=== PATIENT | male | born 1990 | race Caucasian/White ===

== ENCOUNTER 2016-10-30 20:12 | Emergency (ER) | payer MEDICAID | END 2016-10-30 21:00 | disposition left against medical advice (07) | LOC: ER 20:12 | DX: Z53.21 Procedure and treatment not carried out due to patient leaving prior to being seen by health care provider (principal) ==

== ENCOUNTER 2016-11-08 21:30 | Emergency (ER) | payer MEDICAID ==
[2016-11-08 21:34] VITALS: BP 151/92
--- NOTE | 2016-11-08 22:40 | ER Document Report ---
HPI - HPI Patient complains to provider of: hand pain Onset: This afternoon Onset/Duration: Sudden Quality of pain: Achy Severity: Moderate Pain Level: 3 Context: Patient presents to emergency department with complaints of right hand pain after he punched a pole. Associated Symptoms: None Exacerbated by: Denies Relieved by: Denies Similar symptoms previously: Yes Recently seen / treated by doctor: No - DERM Skin Color: Normal Past Medical History - General Information source: Patient - Social History Smoking Status: Current Every Day Smoker Cigarette use (# per day): Yes Chew tobacco use (# tins/day): No Frequency of alcohol use: None Drug Abuse: None Family History: None Patient has suicidal ideation: No Patient has homicidal ideation: No Renal/ Medical History: Denies: Hx Peritoneal Dialysis Psychiatric Medical History: Reports: Hx Depression, Hx Schizoaffective Disorder Surgical Hx: Negative - Immunizations Hx Diphtheria, Pertussis, Tetanus Vaccination: Yes Vertical Provider Document - CONSTITUTIONAL Agree With Documented VS: Yes Exam Limitations: No Limitations General Appearance: WD/WN, No Apparent Distress - INFECTION CONTROL TRAVEL OUTSIDE OF THE [place]S. IN LAST 30 DAYS: No - HEENT HEENT: Atraumatic - NECK Neck: Supple - RESPIRATORY Respiratory: No Respiratory Distress O2 Sat by Pulse Oximetry: 97 - MUSCULOSKELETAL/EXTREMETIES Musculoskeletal/Extremeties: MAEW, FROM, Tender - Right dorsal hand tender to palpation erythema noted no obvious deformity good cap refill - NEURO Level of Consciousness: Awake, Alert, Appropriate Motor/Sensory: No Motor Deficit - DERM Integumentary: Warm, Dry Adult Front & Back Diagram: 1 - c/o pain Course - Vital Signs Vital signs: Temp Pulse Resp BP Pulse Ox 98.0 F 110 H 151/92 H 97 11/08/16 21:33 11/08/16 21:33 11/08/16 21:33 11/08/16 21:33 Discharge - Discharge Clinical Impression: Right hand pain, elevated blood pressure Condition: Stable Disposition: HOME, SELF-CARE Instructions: Use of Kdwd-Wek-Buincif Ibuprofen ([facility]), Ice & Elevation ([facility]) Additional Instructions: *You have been evaluated for right hand pain *Take ibuprofen as indicated for pain *Rest/Ice/Elevate the hand *Follow up with orthopedics in one week for recheck-call for an appointment *Return to ED for worsening condition, changes, needs Forms: Elevated Blood Pressure
== END 2016-11-08 22:52 | disposition home or self-care (01) ==
LOC: ER 21:30
DX: M79.641 Pain in right hand (principal); L53.9 Erythematous condition, unspecified; W22.8XXA Striking against or struck by other objects, initial encounter; F17.210 Nicotine dependence, cigarettes, uncomplicated; I10 Essential (primary) hypertension
CPT/HCPCS: 99283

== ENCOUNTER 2016-12-26 10:50 | Observation (INO) | payer MEDICAID ==
--- NOTE | 2016-12-26 11:22 | ER Document Report ---
ED Medical Screen (RME) - General Stated Complaint: WEAKNESS Notes: pt states he woke up this morning with generalized weakness. Has vomited 1. No diarrhea. States he felt weak and fell hitting left side of face on the floor. Patient denies recent illness, mother states he felt hot this morning and gave him Tylenol and Motrin. I have greeted and performed a rapid initial assessment of this patient. A comprehensive ED assessment and evaluation of the patient, analysis of test results and completion of the medical decision making process will be conducted by additional ED providers. TRAVEL OUTSIDE OF THE U.S. IN LAST 30 DAYS: No - Related Data Allergies/Adverse Reactions: No Known Allergies Allergy (Verified 12/26/16 11:20) Past Medical History Renal/ Medical History: Denies: Hx Peritoneal Dialysis Psychiatric Medical History: Reports: Hx Depression, Hx Schizoaffective Disorder - Immunizations Hx Diphtheria, Pertussis, Tetanus Vaccination: Yes Physical Exam - Vital signs Vitals: Temp Pulse Resp BP Pulse Ox 97.7 F 101 H 18 156/92 H 97 12/26/16 10:54 12/26/16 10:54 12/26/16 10:54 12/26/16 10:54 12/26/16 10:54 - General General appearance: Anxious In distress: Mild Notes: Bruising noted to left lateral orbit. Course - Vital Signs Vital signs: Temp Pulse Resp BP Pulse Ox 97.7 F 101 H 18 156/92 H 97 12/26/16 10:54 12/26/16 10:54 12/26/16 10:54 12/26/16 10:54 12/26/16 10:54
[2016-12-26 11:48] LABS: ABSOLUTE EOSINOPHILS # (AUTO) 0.1 10^3/uL (0.0-0.6); ABSOLUTE LYMPHOCYTES (AUTO) 1.5 10^3/uL (0.5-4.7); ABSOLUTE MONOCYTES (AUTO) 1.2 10^3/uL (0.1-1.4); ABSOLUTE NEUT (AUTO) 7.6 10^3/uL (1.7-8.2); BASOPHILS % (AUTO) 0.4 % (0-2); EOSINOPHILS % (AUTO) 0.8 % (0-6); HEMATOCRIT 40.3 % (37.9-51.0); HGB HCT DIFFERENCE 1.7; LYMPHOCYTES % (AUTO) 14.8 % (13-45); MEAN CORPUSCULAR HEMOGLOBIN 31.9 pg (27.0-33.4); MEAN CORPUSCULAR HGB CONC 34.7 g/dL (32.0-36.0); MEAN CORPUSCULAR VOLUME 92 fl (80-97); MONOCYTES % (AUTO) 11.1 % (3-13); RED BLOOD COUNT 4.38 10^6/uL (4.35-5.55); RED CELL DISTRIBUTION WIDTH 13.4 % (11.5-14.0); SEGMENTED NEUTROPHILS % (AUTO) 72.9 % (42-78); WHITE BLOOD COUNT 10.4 10^3/uL (4.0-10.5)
[2016-12-26 12:33] LABS: ALANINE AMINOTRANSFERASE 58 U/L (21-72); ALBUMIN 4.4 g/dL (3.5-5.0); ALKALINE PHOSPHATASE 115 U/L (38-126); ANION GAP 14 (5-19); ASPARTATE AMINO TRANSFERASE 60 U/L (17-59); BILIRUBIN,TOTAL 0.3 mg/dL (0.2-1.3); BLOOD UREA NITROGEN 6 mg/dL (7-20); CALCIUM 9.8 mg/dL (8.4-10.2); CARBON DIOXIDE 18 mmol/L (22-30); CHLORIDE 108 mmol/L (98-107); GLUCOSE 219 mg/dL (75-110); SODIUM 139.9 mmol/L (137-145); TOTAL PROTEIN 7.2 g/dL (6.3-8.2)
[2016-12-26 12:38] LABS: POTASSIUM 1.9 mmol/L (3.6-5.0)
--- NOTE | 2016-12-26 12:44 | ER Document Report ---
ED General - General Chief Complaint: Weakness Stated Complaint: WEAKNESS Mode of Arrival: Ambulatory Information source: Patient Notes: 26-year-old male presents with complaints of muscle weakness difficulty ambulating and standing over the past day. Patient notes he has been having diarrhea for 6 months straight. Denies any fevers or chills has vomited one time TRAVEL OUTSIDE OF THE [place] IN LAST 30 DAYS: No - HPI Onset: Other Onset/Duration: Persistent Quality of pain: Achy Severity: Moderate Pain Level: 1 Associated symptoms: Body/muscle aches, Weakness Exacerbated by: Walking Relieved by: Denies Similar symptoms previously: No Recently seen / treated by doctor: No - Related Data Allergies/Adverse Reactions: No Known Allergies Allergy (Verified 12/26/16 11:20) Past Medical History - Social History Smoking Status: Current Every Day Smoker Cigarette use (# per day): Yes Chew tobacco use (# tins/day): No Smoking Education Provided: No Frequency of alcohol use: None Drug Abuse: None Family History: None Patient has suicidal ideation: No Patient has homicidal ideation: No Renal/ Medical History: Denies: Hx Peritoneal Dialysis Psychiatric Medical History: Reports: Hx Depression, Hx Schizoaffective Disorder - Immunizations Hx Diphtheria, Pertussis, Tetanus Vaccination: Yes Review of Systems - Review of Systems Notes: REVIEW OF SYSTEMS: CONSTITUTIONAL : Denies fever, chills, or sweats. Denies recent illness. EENT: Denies eye, ear, throat, or mouth pain or symptoms. Denies nasal or sinus congestion or discharge. Denies throat, tongue, or mouth swelling or difficulty swallowing. CARDIOVASCULAR: Denies chest pain. Denies palpitations or racing or irregular heart beat. Denies ankle edema. RESPIRATORY: Denies cough, cold, or chest congestion. Denies shortness of breath, difficulty breathing, or wheezing. GASTROINTESTINAL: Admits to diarrhea GENITOURINARY: Denies difficulty urinating, painful urination, burning, frequency, blood in urine, or discharge. MUSCULOSKELETAL: Admits to muscle weakness SKIN: Denies rash, lesions or sores. HEMATOLOGIC : Denies easy bruising or bleeding. LYMPHATIC: Denies swollen, enlarged glands. NEUROLOGICAL: Denies confusion or altered mental status. Denies passing out or loss of consciousness. Denies dizziness or lightheadedness. Denies headache. Denies weakness or paralysis or loss of use of either side. Denies problems with gait or speech. Denies sensory loss, numbness, or tingling. Denies seizures. PSYCHIATRIC: Denies anxiety or stress. Denies depression, suicidal ideation, or homicidal ideation. ALL OTHER SYSTEMS REVIEWED AND NEGATIVE. Dictation was performed using [employer] voice recognition software PHYSICAL EXAMINATION: GENERAL: Well-appearing, well-nourished and in no acute distress. HEAD: Atraumatic, normocephalic. EYES: Pupils equal round and reactive to light, extraocular movements intact, sclera anicteric, conjunctiva are normal. ENT: Nares patent, oropharynx clear without exudates. Moist mucous membranes. NECK: Normal range of motion, supple without lymphadenopathy LUNGS: Breath sounds clear to auscultation bilaterally and equal. No wheezes rales or rhonchi. HEART: Regular rate and rhythm without murmurs ABDOMEN: Soft, nontender, nondistended abdomen. No guarding, no rebound. No masses appreciated. Musculoskeletal: Normal range of motion, no pitting or edema. No cyanosis. NEUROLOGICAL: Cranial nerves grossly intact. Normal speech, normal gait. Normal sensory, motor exams PSYCH: Normal mood, normal affect. SKIN: Warm, Dry, normal turgor, no rashes or lesions noted. Physical Exam - Vital signs Vitals: Temp Pulse Resp BP Pulse Ox 97.7 F 101 H 18 156/92 H 97 12/26/16 10:54 12/26/16 10:54 12/26/16 10:54 12/26/16 10:54 12/26/16 10:54 Course - Re-evaluation Re-evalutation: 12/26/16 12:43 Patient's initial potassium is noted to be 1.9 this would be consistent with the patient's presentation and complaints. A repeat has been ordered 12/26/16 13:12 pt repeat noted ot be 2.3 , will treat immediately and admit ot the hospitals[facility] service - Vital Signs Vital signs: Temp Pulse Resp BP Pulse Ox 97.7 F 101 H 18 156/92 H 97 12/26/16 10:54 12/26/16 10:54 12/26/16 10:54 12/26/16 10:54 12/26/16 10:54 - Laboratory Result Diagrams: 12/26/16 11:25 12/26/16 12:40 Laboratory results interpreted by me: 12/26/16 12/26/16 11:25 12:40 Potassium 1.9 L* 2.3 L* Chloride 108 H 113 H Carbon Dioxide 18 L 19 L BUN 6 L 6 L Glucose 219 H 111 H Calcium 10.3 H AST 60 H Critical Care Note - Critical Care Note Total time excluding time spent on procedures (mins): 40 Comments: 40 minutes of critical care time spent in direct contact evaluating and reevaluating the patient, treating symptoms, reviewing labs and studies and speaking with family and consultants excluding any procedures Discharge - Discharge Clinical Impression: severe hypokalemia, Generalized muscle ache, Weakness, Chronic diarrhea Condition: Fair Disposition: ADMITTED OBSERVATION Admitting Provider: Hospitalist Unit Admitted: Medical Floor
[2016-12-26 13:06] LABS: ALANINE AMINOTRANSFERASE 60 U/L (21-72); ALBUMIN 4.6 g/dL (3.5-5.0); ALKALINE PHOSPHATASE 109 U/L (38-126); ANION GAP 13 (5-19); ASPARTATE AMINO TRANSFERASE 55 U/L (17-59); BILIRUBIN,TOTAL 0.4 mg/dL (0.2-1.3); BLOOD UREA NITROGEN 6 mg/dL (7-20); CALCIUM 10.3 mg/dL (8.4-10.2); CARBON DIOXIDE 19 mmol/L (22-30); CHLORIDE 113 mmol/L (98-107); CREATINE KINASE 164 U/L (55-170); GLUCOSE 111 mg/dL (75-110); MAGNESIUM 1.8 mg/dL (1.6-2.3); SODIUM 144.7 mmol/L (137-145); TOTAL PROTEIN 7.5 g/dL (6.3-8.2)
[2016-12-26 13:10] LABS: POTASSIUM 2.3 mmol/L (3.6-5.0)
[2016-12-26] MEDS ORDERED: POTASSIUM CHLORIDE 10 MEQ TABLET.SA PO ONE ×2 (13:11→20:00)
[2016-12-26] MEDS: POTASSI CL 20 MEQ/50 ML RIDER 50 ML IV SCH ×4 (14:04→22:58)
[2016-12-26 14:16] LABS: APPEARANCE,URINE CLEAR; BILIRUBIN,URINE NEGATIVE (NEGATIVE); GLUCOSE, URINE NEGATIVE (NEGATIVE); KETONES,URINE NEGATIVE (NEGATIVE); LEUKOCYTE ESTERASE,URINE NEGATIVE (NEGATIVE); NITRITE,URINE NEGATIVE (NEGATIVE); PROTEIN,URINE NEGATIVE (NEGATIVE); URINE SPECIFIC GRAVITY 1.002; UROBILINOGEN,URINE NEGATIVE mg/dL (<2.0)
--- NOTE | 2016-12-26 15:08 | PDOC H&P ---
History of Present Illness Admission Date/PCP: 12/26/16 14:11 Patient complains of: Generalized muscle weakness History of Present Illness: OVIDOI NOBLES is a 26 year old male male who presents to the emergency room this morning complaining of difficulty ambulating, falling after eating out of bed and generalized muscle weakness over the last 24 hours. He claims he 's had diarrhea for the last 6 months straight. He denies any recent antibiotic use. He states he was nauseated this morning and did vomit one time. He states he does have problems with gastroesophageal reflux and takes omeprazole. He attributed his diarrhea to his diet. He denies any fever or chills. He denies any prior history of muscle weakness. He denies any headache , dizziness or syncope. He states he did fall one time when he first got out of bed this morning because his legs gave out. He hit the left side of his head has some bruising around the left eye. He otherwise voices no injuries or complaints. Does have past medical history of gastroesophageal reflux disease, bipolar disorder and schizoaffective disorder. Past Medical History Cardiac Medical History: Reports: None Pulmonary Medical History: Reports: None EENT Medical History: Reports: None Neurological Medical History: Reports: None Endocrine Medical History: Reports: None Renal/ Medical History: Reports: None Malignancy Medical History: Reports: None GI Medical History: Reports: None Musculoskeltal Medical History: Reports: None Skin Medical History: Reports: None Psychiatric Medical History: Reports: Depression, Schizoaffective Disorder, Tobacco Dependency Traumatic Medical History: Reports: None Hematology: Reports: None Infectious Medical History: Reports: None Past Surgical History Past Surgical History: Reports: None Social History Information Source: Patient Lives with: Family Smoking Status: Current Every Day Smoker Cigarettes Packs Per Day: 1.5 Frequency of Alcohol Use: Occasional Hx Recreational Drug Use: No Hx Prescription Drug Abuse: No - Advance Directive Resuscitation Status: Full Code Surrogate healthcare decision maker:: Parents are decision makers Family History Family History: None Parental Family History Reviewed: Yes Children Family History Reviewed: NA Sibling(s) Family History Reviewed.: Yes Medication/Allergy Home Medications: Hydrocodone/Acetaminophen [[place] 5-325 Tablet] 1 each PO Q4 PRN #15 tablet 08/15 Sulfamethoxazole/Trimethoprim [Septra-Ds 800-160 mg Tablet] 2 tab PO BID #20 tablet 08/27/16 Allergies/Adverse Reactions: No Known Allergies Allergy (Verified 12/26/16 11:20) Review of Systems Constitutional: ABSENT: chills, fever(s), headache(s), weight gain, weight loss Cardiovascular: ABSENT: chest pain, dyspnea on exertion, edema, orthropnea, palpitations Respiratory: ABSENT: cough, hemoptysis Gastrointestinal: PRESENT: diarrhea, heartburn, nausea, vomiting Genitourinary: ABSENT: dysuria, hematuria Musculoskeletal: PRESENT: muscle weakness Integumentary: ABSENT: rash, wounds Neurological: ABSENT: abnormal gait, abnormal speech, confusion, dizziness, focal weakness, syncope Psychiatric: ABSENT: anxiety, depression, homidical ideation, suicidal ideation Endocrine: ABSENT: cold intolerance, heat intolerance, polydipsia, polyuria Hematologic/Lymphatic: ABSENT: easy bleeding, easy bruising Physical Exam Vital Signs: Temp Pulse Resp BP Pulse Ox 97.7 F 101 H 18 156/92 H 97 12/26/16 10:54 12/26/16 10:54 12/26/16 10:54 12/26/16 10:54 12/26/16 10:54 General appearance: PRESENT: no acute distress, well-developed, well-nourished Head exam: PRESENT: atraumatic, normocephalic Eye exam: PRESENT: conjunctiva pink, EOMI, PERRLA. ABSENT: scleral icterus Ear exam: PRESENT: normal external ear exam Mouth exam: PRESENT: moist, tongue midline Neck exam: ABSENT: carotid bruit, JVD, lymphadenopathy, thyromegaly Respiratory exam: PRESENT: clear to auscultation taylor. ABSENT: rales, rhonchi, wheezes Cardiovascular exam: PRESENT: RRR. ABSENT: diastolic murmur, rubs, systolic murmur Vascular exam: PRESENT: normal capillary refill GI/Abdominal exam: PRESENT: normal bowel sounds, soft. ABSENT: distended, guarding, mass, organolmegaly, rebound, tenderness Rectal exam: PRESENT: deferred Extremities exam: PRESENT: full ROM. ABSENT: calf tenderness, clubbing, pedal edema Neurological exam: PRESENT: alert, awake, oriented to person, oriented to place , oriented to time, oriented to situation, CN II-XII grossly intact. ABSENT: motor sensory deficit Psychiatric exam: PRESENT: appropriate affect, normal mood. ABSENT: homicidal ideation, suicidal ideation Skin exam: PRESENT: dry, intact, warm. ABSENT: cyanosis, rash Assessment & Plan - Diagnosis (1) Hypokalemia Is this a current diagnosis for this admission?: YesPlan: We'll replete with IV and oral potassium. We'll recheck levels at 2100 (2) Chronic diarrhea Is this a current diagnosis for this admission?: YesPlan: We'll check stools for C. difficile and stool culture. If no cause he can follow-up with gastroenterology as an outpatient. (3) Generalized muscle ache Is this a current diagnosis for this admission?: YesPlan: Secondary to hypokalemia (4) Generalized weakness Is this a current diagnosis for this admission?: YesPlan: Secondary severe hypokalemia - Time Time Spent: 50 to 70 Minutes Critical Time spent with patient: 25-34 minutes Smoking Cessation Education: 3 to 10 minutes Medications reviewed and adjusted accordingly: Yes Anticipated discharge: Home Within: within 24 hours
--- NOTE | 2016-12-26 17:16 | EKG REPORT ---
SEVERITY:- ABNORMAL ECG - SINUS RHYTHM INCOMPLETE RIGHT BUNDLE BRANCH BLOCK BLOCKED APC : Confirmed by: Jacinta Begum MD 26-Dec-2016 17:15:02
[2016-12-26] MEDS ORDERED: TRAZODONE HCL 50 MG TABLET PO SCH (22:00)
[2016-12-26] MEDS ORDERED: OLANZAPINE 15 MG PO SCH (22:00)
[2016-12-26] MEDS ORDERED: (PENDING PHARMACY ID) (Trazodone Hcl [Desyrel] 100 MG) PO SCH (22:00)
[2016-12-26] MEDS ORDERED: OLANZAPINE 5 MG TABLET PO SCH (22:00)
[2016-12-26] MEDS ORDERED: BUSPIRONE HCL PO SCH (22:00)
[2016-12-26] MEDS: BUSPIRONE HCL 10 MG TABLET PO SCH (22:14)
[2016-12-26] MEDS: OXCARBAZEPINE 150 MG TABLET PO SCH (22:15)
[2016-12-27 06:57] LABS: ALANINE AMINOTRANSFERASE 41 U/L (21-72); ALBUMIN 3.5 g/dL (3.5-5.0); ALKALINE PHOSPHATASE 89 U/L (38-126); ANION GAP 7 (5-19); ASPARTATE AMINO TRANSFERASE 30 U/L (17-59); BILIRUBIN,TOTAL 0.4 mg/dL (0.2-1.3); BLOOD UREA NITROGEN 6 mg/dL (7-20); CALCIUM 8.9 mg/dL (8.4-10.2); CARBON DIOXIDE 22 mmol/L (22-30); CHLORIDE 113 mmol/L (98-107); CREATININE RESULT 0.75 mg/dL (0.52-1.25); GLUCOSE 93 mg/dL (75-110); TOTAL PROTEIN 5.8 g/dL (6.3-8.2)
[2016-12-27 07:25] LABS: POTASSIUM 4.8 mmol/L (3.6-5.0)
[2016-12-27] MEDS: OXCARBAZEPINE 150 MG TABLET PO SCH (09:02)
[2016-12-27] MEDS: BUSPIRONE HCL 10 MG TABLET PO SCH (09:02)
[2016-12-27 09:08] VITALS: BP 133/81
[2016-12-27] MEDS ORDERED: NICOTINE 21 MG/24 HR PATCH.TD24 TD SCH (10:00)
--- NOTE | 2016-12-29 09:30 | PDOC DISCHARGE SUMMARY ---
General - Admit/Disc Date/PCP Admission Date/Primary Care Provider: 12/26/16 14:18 Discharge Date: 12/27/16 - Discharge Diagnosis (1) Hypokalemia Is this a current diagnosis for this admission?: YesSummary: Repleted now 4.8 today. Came in with a potassium of 1.9 (2) Chronic diarrhea Is this a current diagnosis for this admission?: YesSummary: Stool cultures and cdiff were ordered patient had no stools (3) Generalized muscle ache Is this a current diagnosis for this admission?: YesSummary: Resolved with potassium replacement (4) Generalized weakness Is this a current diagnosis for this admission?: YesSummary: Resolved with potassium of 1.9 - Additional Information Resuscitation Status: Full Code Discharge Diet: Regular Discharge Activity: Activity As Tolerated, Balance Activity w/Rest Home Medications: Buspirone HCl [Buspar 30 mg Tablet] 60 mg PO Q12 12/26/16 Citalopram Hydrobromide [Celexa 20 mg Tablet] 20 mg PO DAILY 12/26/16 Olanzapine 15 mg PO QHS 12/26/16 Oxcarbazepine [Trileptal 150 mg Tablet] 150 mg PO Q12 12/26/16 Trazodone HCl [Desyrel] 100 mg PO QHS 12/26/16 History of Present Illness History of Present Illness: OVIDIO NOBLES is a 26 year old male male who presents to the emergency room this morning complaining of difficulty ambulating, falling after eating out of bed and generalized muscle weakness over the last 24 hours. He claims he 's had diarrhea for the last 6 months straight. He denies any recent antibiotic use. He states he was nauseated this morning and did vomit one time. He states he does have problems with gastroesophageal reflux and takes omeprazole. He attributed his diarrhea to his diet. He denies any fever or chills. He denies any prior history of muscle weakness. He denies any headache , dizziness or syncope. He states he did fall one time when he first got out of bed this morning because his legs gave out. He hit the left side of his head has some bruising around the left eye. He otherwise voices no injuries or complaints. Does have past medical history of gastroesophageal reflux disease, bipolar disorder and schizoaffective disorder. Physical Exam Vital Signs: Temp Pulse Resp BP Pulse Ox 97.4 F 72 20 133/81 H 100 12/27/16 09:03 12/27/16 09:03 12/27/16 09:03 12/27/16 09:03 12/27/16 09:03 Intake & Output 12/26/16 12/27/16 12/28/16 06:59 06:59 06:59 Intake Total 500 Balance 500 Weight 90.7 kg Results Laboratory Results: 12/27/16 05:59 12/26/16 12/27/16 21:02 05:59 Sodium 142.0 Potassium 3.7 D 4.8 D Chloride 113 H Carbon Dioxide 22 Anion Gap 7 BUN 6 L Creatinine 0.75 Est GFR ( Amer) > 60 Est GFR (Non-Af Amer) > 60 Glucose 93 Calcium 8.9 Total Bilirubin 0.4 AST 30 ALT 41 Alkaline Phosphatase 89 Total Protein 5.8 L Albumin 3.5
== END 2016-12-27 09:25 | disposition home or self-care (01) ==
LOC: ER 10:50 → UNDOADMOB 14:11 → EH 14:11 → 5 15:19
PROVIDERS: ADMIT Emergency Medicine; ATTEND Emergency Medicine
DX: E87.6 Hypokalemia (principal); R19.7 Diarrhea, unspecified; M79.1 Myalgia; R53.1 Weakness; K21.9 Gastro-esophageal reflux disease without esophagitis; F31.9 Bipolar disorder, unspecified; F25.9 Schizoaffective disorder, unspecified; F17.210 Nicotine dependence, cigarettes, uncomplicated
CPT/HCPCS: 93005; 99291; 36415 ×2; 82550; 83735; 84132; 85025; 80053 ×2; 81001; 93010; G0378 ×3; J3490 ×4; J3480

== ENCOUNTER 2017-01-03 21:07 | Emergency (ER) | payer MEDICAID ==
[2017-01-03 22:01] VITALS: BP 154/95
== END 2017-01-04 06:14 | disposition left against medical advice (07) ==
LOC: ER 21:07
DX: Z53.21 Procedure and treatment not carried out due to patient leaving prior to being seen by health care provider (principal)

== ENCOUNTER 2017-03-06 18:37 | Emergency (ER) | payer MEDICAID ==
--- NOTE | 2017-03-06 20:54 | ER Document Report ---
HPI - HPI Patient complains to provider of: right knee pain Onset: Other - sunday Onset/Duration: Persistent Quality of pain: Achy Severity: Severe Pain Level: 4 Context: Patient presents emergency department with complaints of right knee pain since Sunday. He reports he was chasing his sister at the beach and twisted his knee. He reports history of knee pain in the past but it has not bothered him in a while. Denies past medical and injury of fracture to his knee. Patient reports he is taking Aleve without any relief of symptoms. No other symptoms such as fever vomiting diarrhea. Patient reports he had the pain when he lived in [place] but they never found out why. Patient recently moved to [place] Associated Symptoms: None Exacerbated by: Walking Relieved by: Denies Similar symptoms previously: Yes Recently seen / treated by doctor: No - CARDIOVASCULAR Cardiovascular: DENIES: Chest pain - DERM Skin Color: Normal, [place] Past Medical History - General Information source: Patient - Social History Smoking Status: Current Every Day Smoker Cigarette use (# per day): Yes Chew tobacco use (# tins/day): No Frequency of alcohol use: None Drug Abuse: None Family History: None Patient has suicidal ideation: No Patient has homicidal ideation: No Renal/ Medical History: Denies: Hx Peritoneal Dialysis Psychiatric Medical History: Reports: Hx Depression, Hx Schizoaffective Disorder , Hx Schizophrenia - effective Surgical Hx: Negative - Immunizations Hx Diphtheria, Pertussis, Tetanus Vaccination: Yes Vertical Provider Document - CONSTITUTIONAL Agree With Documented VS: Yes Exam Limitations: No Limitations General Appearance: WD/WN, No Apparent Distress - INFECTION CONTROL TRAVEL OUTSIDE OF THE [place] IN LAST 30 DAYS: No - HEENT HEENT: Atraumatic, Normocephalic - NECK Neck: Supple - RESPIRATORY Respiratory: No Respiratory Distress O2 Sat by Pulse Oximetry: 96 - CARDIOVASCULAR Cardiovascular: Regular Rate - MUSCULOSKELETAL/EXTREMETIES Musculoskeletal/Extremeties: MAEW, FROM, Tender - Complaints of right knee pain no obvious injury no swelling no erythema no warmth, patient ambulating without problems - NEURO Level of Consciousness: Awake, Alert, Appropriate Motor/Sensory: No Motor Deficit - DERM Integumentary: Warm, Dry Adult Front & Back Diagram: 1 - Reports pain Course - Vital Signs Vital signs: Temp Pulse Resp BP Pulse Ox 98.4 F 85 17 144/85 H 96 03/06/17 19:35 03/06/17 19:35 03/06/17 19:35 03/06/17 19:35 03/06/17 19:35 - Diagnostic Test Radiology reviewed: Image reviewed, Reports reviewed - neg fx neg for soft tissue swelling Procedures - Immobilization Right Knee Immobilizer type: Giles wrap Performed by: RN Post-Proc Neuro Vasc Exam: Unchanged from pre-exam Discharge - Discharge Clinical Impression: Elevated blood pressure reading Right knee pain Qualifiers: Chronicity: acute Qualified Code(s): M25.561 - Pain in right knee Condition: Stable Disposition: HOME, SELF-CARE Instructions: Giles Wrap ([facility]), Anti-Inflammatory Medication ([facility]), Ice & Elevation ([facility]) Additional Instructions: *You have been evaluated for knee pain, elevated blood pressure reading *Maintain the giles wrap *Rest/Ice/Elevate your knee *Follow up with orthopedics this week-call for an appointment *Take medication as prescribed *Return to ED for worsening condition, changes, needs Monitor your blood pressure. Your blood pressure was elevated today. This may be because you were anxious, in pain or because you need medication. It is important to follow up with your primary care provider for full evaluation. Prescriptions: Naproxen 500 mg PO BID #20 tablet Forms: Elevated Blood Pressure
--- NOTE | 2017-03-06 21:33 | RADIOLOGY REPORT (SQ) ---
EXAM DESCRIPTION: KNEE RIGHT 4 VIEWS COMPLETED DATE/TIME: 03/06/2017 9:23 pm REASON FOR STUDY: right knee pain COMPARISON: None. NUMBER OF VIEWS: Four views. TECHNIQUE: AP, lateral, and both oblique radiographic images acquired of the right knee. LIMITATIONS: None. FINDINGS: MINERALIZATION: Normal. BONES: No acute fracture or dislocation. No worrisome bone lesions. JOINT: No effusion. SOFT TISSUES: No soft tissue swelling. No radio-opaque foreign body. OTHER: No other significant finding. IMPRESSION: NEGATIVE STUDY OF THE RIGHT KNEE. NO RADIOGRAPHIC EVIDENCE OF ACUTE INJURY. TECHNICAL DOCUMENTATION: JOB ID: [id number] [employer]- All Rights Reserved
[2017-03-06 21:51] VITALS: BP 138/84
== END 2017-03-06 21:51 | disposition home or self-care (01) ==
LOC: ER 18:37
DX: M25.561 Pain in right knee (principal); X50.1XXA Overexertion from prolonged static or awkward postures, initial encounter; Y93.89 Activity, other specified; Y92.832 Beach as the place of occurrence of the external cause; R03.0 Elevated blood-pressure reading, without diagnosis of hypertension; F17.210 Nicotine dependence, cigarettes, uncomplicated
CPT/HCPCS: 99283

== ENCOUNTER 2017-03-11 19:18 | Emergency (ER) | payer MEDICAID ==
--- NOTE | 2017-03-11 21:05 | ER Document Report ---
ED Extremity Problem, Lower - General Chief Complaint: R leg pain Stated Complaint: RIGHT LEG PAIN Time Seen by Provider: 03/11/17 21:03 Mode of Arrival: Ambulatory Information source: Patient TRAVEL OUTSIDE OF THE [place] IN LAST 30 DAYS: No - HPI Patient complains to provider of: Pain Quality of pain: Achy - This 27-year-old male who states that he has muscle pain to the anterior aspect of his right lower extremity proximal to the knee distal to the hip - Related Data Allergies/Adverse Reactions: No Known Allergies Allergy (Verified 03/11/17 20:50) Past Medical History - General Information source: Patient - Social History Smoking Status: Current Every Day Smoker Chew tobacco use (# tins/day): No Frequency of alcohol use: Rare Drug Abuse: None Family History: None Renal/ Medical History: Denies: Hx Peritoneal Dialysis Psychiatric Medical History: Reports: Hx Depression, Hx Schizoaffective Disorder , Hx Schizophrenia - effective Surgical Hx: Negative - Immunizations Hx Diphtheria, Pertussis, Tetanus Vaccination: Yes Review of Systems - Review of Systems Constitutional: No symptoms reported EENT: No symptoms reported Cardiovascular: No symptoms reported Respiratory: No symptoms reported Gastrointestinal: No symptoms reported Genitourinary: No symptoms reported Male Genitourinary: No symptoms reported Musculoskeletal: No symptoms reported Skin: No symptoms reported Hematologic/Lymphatic: No symptoms reported Neurological/Psychological: No symptoms reported Physical Exam - Vital signs Vitals: Temp Pulse Resp BP Pulse Ox 98.4 F 89 18 146/75 H 98 03/11/17 19:28 03/11/17 19:28 03/11/17 19:28 03/11/17 19:28 03/11/17 19:28 Interpretation: Normal - General General appearance: Appears well, Alert - HEENT Head: Normocephalic, Atraumatic Eyes: Normal Pupils: PERRL - Respiratory Respiratory status: No respiratory distress Chest status: Nontender Breath sounds: Normal Chest palpation: Normal - Cardiovascular Rhythm: Regular Heart sounds: Normal auscultation Murmur: No - Abdominal Inspection: Normal Distension: No distension Bowel sounds: Normal Tenderness: Nontender Organomegaly: No organomegaly - Back Back: Normal, Nontender - Extremities General upper extremity: Normal inspection, Nontender, Normal color, Normal ROM , Normal temperature General lower extremity: Normal inspection, Nontender, Normal color, Normal ROM , Normal temperature, Normal weight bearing. No: Cristóbal's sign - Neurological Neuro grossly intact: Yes Cognition: Normal Orientation: AAOx4 [place] Coma Scale Eye Opening: Spontaneous [place] Coma Scale Verbal: Oriented Jeanne Coma Scale Motor: Obeys Commands Jean[place] Coma Scale Total: 15 Speech: Normal Motor strength normal: LUE, RUE, LLE, RLE Sensory: Normal - Psychological Associated symptoms: Normal affect, Normal mood - Skin Skin Temperature: Warm Skin Moisture: Dry Skin Color: Normal Course - Re-evaluation Re-evalutation: 03/11/17 21:03 Patient states he has discomfort to the right anterior lower extremity distal to the hip proximal to the patella there is no ecchymosis no rash no identified abnormality he had an x-ray of his knee 2 days ago he was ambulatory with a rhythmic and steady gait. Pulses. - Vital Signs Vital signs: Temp Pulse Resp BP Pulse Ox 98.4 F 89 18 146/75 H 98 03/11/17 19:28 03/11/17 19:28 03/11/17 19:28 03/11/17 19:28 03/11/17 19:28 Discharge - Discharge Clinical Impression: Muscle strain Condition: Good Disposition: HOME, SELF-CARE Additional Instructions: Muscle Strain You have strained a muscle -- torn the fibers within the muscle. This often occurs with strenuous exertion, or during an injury that suddenly stretches the muscle. The seriousness of a strain varies. Some strains heal within days, others cause problems for months. X-rays cannot show a muscle strain. X-rays are taken only if symptoms suggest that a fracture could be present. The usual treatment of a muscle strain is rest and ice packs. Sometimes, a sling, splint, or crutches may be necessary to rest the muscle. The muscle can be used again once pain subsides. Severe strains require a special exercise and stretching program to prevent permanent stiffness and disability. Your doctor will advise you if this will be necessary. Call the doctor immediately if pain or swelling becomes severe, or if numbness or discoloration develop. Prescriptions: Naproxen Sodium [Naproxen Sodium ER] 500 mg PO Q12 PRN #20 tablet.sa PRN Reason:
[2017-03-11 21:38] VITALS: BP 140/70
== END 2017-03-11 21:38 | disposition home or self-care (01) ==
LOC: ER 19:18
DX: T14.8 Other injury of unspecified body region (principal); X50.1XXA Overexertion from prolonged static or awkward postures, initial encounter; Y92.832 Beach as the place of occurrence of the external cause; M79.1 Myalgia; F17.200 Nicotine dependence, unspecified, uncomplicated
CPT/HCPCS: 99283

== ENCOUNTER 2017-03-21 22:02 | Emergency (ER) | payer MEDICAID ==
--- NOTE | 2017-03-21 23:01 | RADIOLOGY REPORT (SQ) ---
EXAM DESCRIPTION: HAND RIGHT 3 VIEWS COMPLETED DATE/TIME: 03/21/2017 10:45 pm REASON FOR STUDY: injury COMPARISON: None. EXAM PARAMETERS: NUMBER OF VIEWS: Three views. TECHNIQUE: AP, lateral and oblique radiographic images acquired of the right hand. LIMITATIONS: None. FINDINGS: MINERALIZATION: Normal. BONES: No acute fracture or dislocation. No worrisome bone lesions. JOINTS: No effusions. SOFT TISSUES: No soft tissue swelling. No foreign body. OTHER: No other significant finding. IMPRESSION: NO RADIOGRAPHIC EVIDENCE OF ACUTE INJURY. TECHNICAL DOCUMENTATION: JOB ID: [id number] [employer]- All Rights Reserved
--- NOTE | 2017-03-21 23:35 | ER Document Report ---
ED General - General Chief Complaint: Hand Pain Stated Complaint: HAND INJURY Time Seen by Provider: 03/21/17 22:53 Notes: Patient is a 27-year-old male who presents with right hand pain after he punched a fence. Patient states that "my cat and I was upset by punched a fence". Notes a dull, constant throbbing pain to the affected area. Touching area worsens the pain. Nothing improves the pain. He is right-hand dominant. Denies any additional injuries or concerns. He has not seen his primary care doctor regarding today's concerns. TRAVEL OUTSIDE OF THE [place] IN LAST 30 DAYS: No - Related Data Allergies/Adverse Reactions: No Known Allergies Allergy (Verified 03/11/17 20:50) Past Medical History - General Information source: Patient - Social History Smoking Status: Current Every Day Smoker Chew tobacco use (# tins/day): No Frequency of alcohol use: None Drug Abuse: None Family History: Reviewed & Not Pertinent Patient has suicidal ideation: No Patient has homicidal ideation: No Renal/ Medical History: Denies: Hx Peritoneal Dialysis Psychiatric Medical History: Reports: Hx Depression, Hx Schizoaffective Disorder , Hx Schizophrenia - effective - Immunizations Hx Diphtheria, Pertussis, Tetanus Vaccination: Yes Review of Systems - Review of Systems Notes: Constitutional: Negative for fever. Cardiovascular: Negative for chest pain. Respiratory: Negative for shortness of breath. Gastrointestinal: Negative for vomiting Musculoskeletal: Positive for right hand pain Skin: Negative for rash. Neurological: Negative for weakness or numbness. 10 point ROS negative except as marked above and in HPI. Physical Exam - Vital signs Vitals: Temp Pulse Resp BP Pulse Ox 98 F 75 16 141/86 H 96 03/21/17 22:31 03/21/17 22:31 03/21/17 22:31 03/21/17 22:31 03/21/17 22:31 Interpretation: Normal Notes: PHYSICAL EXAMINATION: GENERAL: Well-appearing, well-nourished and in no acute distress. HEAD: Atraumatic, normocephalic. EYES: sclera anicteric, conjunctiva are normal. ENT: Moist mucous membranes. NECK: Normal range of motion LUNGS: Normal work of breathing HEART: 2+ radial pulses bilaterally EXTREMITIES: Slight swelling and bruising over the metacarpals of the third and fourth knuckle without deformity or limited range of motion NEUROLOGICAL: No focal neurological deficits. Moves all extremities spontaneously and on command. PSYCH: Normal mood, normal affect. SKIN: Warm, Dry, normal turgor, no rashes or lesions noted. Course - Re-evaluation Re-evalutation: 03/21/17 23:34 No evidence of a septic joint, gout flare, dislocation, or fracture on exam and imaging. Vitals wnl. At this time, I do not see an indication for labs or further imaging. Suspect mild soft tissue injury related to patient punching a fence. Will discharge with conservative measures, return precautions, and follow-up recommendations. - Vital Signs Vital signs: Temp Pulse Resp BP Pulse Ox 98 F 81 18 118/74 99 03/21/17 22:31 03/21/17 23:52 03/21/17 23:52 03/21/17 23:52 03/21/17 23:52 - Diagnostic Test Radiology reviewed: Image reviewed, Reports reviewed Radiology results interpreted by me: 03/22/17 02:05 Right hand x-ray: No acute fracture dislocation Discharge - Discharge Clinical Impression: Injury of right hand Qualifiers: Encounter type: initial encounter Qualified Code(s): S69.91XA - Unspecified injury of right wrist, hand and finger(s), initial encounter Condition: Good Disposition: HOME, SELF-CARE Additional Instructions: Your x-ray does not show any acute fracture today. You likely have a soft tissue injury related to punching a fence. Avoid punching hard objects in the future as your hand will always lose. You should continue to take anti- inflammatories such as ibuprofen 600 mg every 6 hours. Continue to apply ice to the area is much your able. Please follow-up with your primary care physician if you do not have improving your symptoms in the next 1-2 weeks. Please return immediately if you develop weakness, numbness, spreading redness from the area, or any other symptoms that are concerning to you.
[2017-03-21 23:53] VITALS: BP 118/74
== END 2017-03-21 23:52 | disposition home or self-care (01) ==
LOC: ER 22:02
DX: S60.221A Contusion of right hand, initial encounter (principal); M79.641 Pain in right hand; W22.09XA Striking against other stationary object, initial encounter; F17.200 Nicotine dependence, unspecified, uncomplicated
CPT/HCPCS: 99283

== ENCOUNTER 2017-05-30 18:21 | Emergency (ER) | payer MEDICAID ==
--- NOTE | 2017-05-30 18:58 | ER Document Report ---
ED Hand/Wrist Injury - General Chief Complaint: Wrist Pain Stated Complaint: LEFT WRIST/ARM PAIN Time Seen by Provider: 05/30/17 18:48 Mode of Arrival: Ambulatory Information source: Patient Notes: Patient presents to ED for pain to the left wrist after he was taken his shirt off on Sunday and the ceiling fan hit his wrist. States the swelling and pain is increasing and his mother insisted he come to the ER. TRAVEL OUTSIDE OF THE [place] IN LAST 30 DAYS: No - HPI Injury to: Wrist Onset: Other - Sunday Where: Home, Indoors Timing: Still present, Worse Quality of pain: Sharp, Throbbing Severity: Severe Pain Level: 5 Context: Blow - Related Data Allergies/Adverse Reactions: No Known Allergies Allergy (Verified 05/30/17 18:28) Past Medical History - General Information source: Patient - Social History Smoking Status: Current Every Day Smoker Cigarette use (# per day): Yes - ppd Chew tobacco use (# tins/day): No Smoking Education Provided: Yes - less than 2 min Frequency of alcohol use: Occasional Drug Abuse: None Occupation: [employer] Lives with: Family Family History: COPD, DM, Malignancy Patient has suicidal ideation: No Patient has homicidal ideation: No - Past Medical History Cardiac Medical History: Reports: None Pulmonary Medical History: Reports: Hx Asthma EENT Medical History: Reports: None Neurological Medical History: Reports: None Endocrine Medical History: Reports: None Renal/ Medical History: Reports: None Malignancy Medical History: Reports None GI Medical History: Reports: None Musculoskeltal Medical History: Reports None Skin Medical History: Reports None Psychiatric Medical History: Reports: Hx Depression, Hx Schizoaffective Disorder Traumatic Medical History: Reports: None Infectious Medical History: Reports: None Surgical Hx: Negative Past Surgical History: Reports: None - Immunizations Hx Diphtheria, Pertussis, Tetanus Vaccination: Yes Review of Systems - Review of Systems Constitutional: No symptoms reported EENT: No symptoms reported Cardiovascular: No symptoms reported Respiratory: No symptoms reported Gastrointestinal: No symptoms reported Genitourinary: No symptoms reported Male Genitourinary: No symptoms reported Musculoskeletal: Other - left wrist pain Skin: No symptoms reported Hematologic/Lymphatic: No symptoms reported Neurological/Psychological: No symptoms reported -: Yes All other systems reviewed and negative Physical Exam - Vital signs Vitals: Temp Pulse Resp BP Pulse Ox 98.4 F 98 16 141/86 H 98 05/30/17 18:26 05/30/17 18:26 05/30/17 18:26 05/30/17 18:26 05/30/17 18:26 Interpretation: Normal - General General appearance: Appears well, Alert - HEENT Head: Normocephalic, Atraumatic Eyes: Normal Pupils: PERRL - Respiratory Respiratory status: No respiratory distress Chest status: Nontender Breath sounds: Normal Chest palpation: Normal - Cardiovascular Rhythm: Regular Heart sounds: Normal auscultation Murmur: No - Abdominal Inspection: Normal Distension: No distension Bowel sounds: Normal Tenderness: Nontender Organomegaly: No organomegaly - Back Back: Normal, Nontender - Extremities General upper extremity: Normal color, Normal ROM, Normal temperature General lower extremity: Normal inspection, Nontender, Normal color, Normal ROM , Normal temperature, Normal weight bearing. No: Cristóbal's sign Shoulder: Normal, Nontender Arm: Normal, Nontender Elbow: Normal, Nontender Forearm: Normal, Nontender Wrist: Tender - radial aspect of left wrist, Other - minimal swelling to left wrist, injury was sunday. No: Ecchymosis, Limited ROM Hand: Normal, Nontender, Ecchymosis, No evidence of human bite, No evidence of FB. No: Swelling - Neurological Neuro grossly intact: Yes Cognition: Normal Orientation: AAOx4 [place] Coma Scale Eye Opening: Spontaneous [place] Coma Scale Verbal: Oriented Jeanne Coma Scale Motor: Obeys Commands [place] Coma Scale Total: 15 Speech: Normal Motor strength normal: LUE, RUE, LLE, RLE Sensory: Normal - Psychological Associated symptoms: Normal affect, Normal mood - Skin Skin Temperature: Warm Skin Moisture: Dry Skin Color: Normal Course - Re-evaluation Re-evalutation: 05/30/17 21:22 Reviewed x-rays with Dr. Sharma, she stated that the x-ray looked negative to place the patient in a cock-up splint and have follow-up with orthopedics. This was discussed with patient cock-up splint applied. Patient instructed to follow-up with orthopedics. Patient sent home with instructions to the use of ibuprofen. He was also instructed in elevation and ice. This injury was on Sunday. Patient refused ibuprofen during his stay in the emergency room. - Vital Signs Vital signs: Temp Pulse Resp BP Pulse Ox 98.5 F 74 15 137/86 H 98 05/30/17 20:51 05/30/17 20:51 05/30/17 20:51 05/30/17 20:51 05/30/17 20:51 - Diagnostic Test Radiology reviewed: Image reviewed - reviewed with Dr Cheema as negative Discharge - Discharge Clinical Impression: Contusion Qualifiers: Encounter type: initial encounter Contusion area: wrist Laterality: left Qualified Code(s): S60.212A - Contusion of left wrist, initial encounter Condition: Stable Disposition: HOME, SELF-CARE Additional Instructions: CONTUSION: Your injury has resulted in a contusion -- a crushing of the deep tissues. No injury to important structures was detected during the physician's exam. Contusions vary in the amount of pain they cause, and in the length of time required for healing. Typically, the area will become bruised, and will remain painful to touch for two or three weeks. However, most patients are back to working and playing within a few days. After the initial period of rest and cold-packs, your symptoms (together with the doctor's recommendations) will determine how rapidly you can get back to full activity. Usually this means "do what feels okay, but don't do things that hurt." If re-examination was recommended, it's important to follow up as instructed. Call the doctor or return any time if pain increases, if swelling becomes severe, if you develop numbness or weakness in an injured extremity, or if any other alarming symptoms occur. USE OF TYLENOL (ACETAMINOPHEN): Acetaminophen may be taken for pain relief or fever control. It's much safer than aspirin, offering a wider range of "safe" dosages. It is safe during . Some brand names are Tylenol, Panadol, Datril, Anacin 3, Tempra, and Liquiprin. Acetaminophen can be repeated every four hours. The following are maximum recommended dosages: WEIGHT Dose Drops Elixir Chewable( 80mg) (LBS.) drprs=droppers tsp=teaspoon 6 40 mg 0.4 ml (1/2) 6-11 80 mg 0.8 ml (full) tsp 1 tab 12-16 120 mg 1 1/2 drprs 3/4 tsp 1 1/2 tabs 17-23 160 mg 2 drprs 1 tsp 2 tabs 24-30 240 mg 3 drprs 1 1/2 tsp 3 tabs 30-35 320 mg 2 tsp 4 tabs 36-41 360 mg 2 1/4 tsp 4 1/2 tabs 42-47 400 mg 2 1/2 tsp 5 tabs 48-53 480 mg 3 tsp 6 tabs 54-59 520 mg 3 1/4 tsp 6 1/2 tabs 60-64 560 mg 3 1/2 tsp 7 tabs 65-70 600 mg 3 3/4 tsp 7 1/2 tabs 71-76 640 mg 4 tsp 8 tabs 77-82 720 mg 4 1/2 tsp 9 tabs 83-88 800 mg 5 tsp 10 tabs >89 pounds or adults 650 mg to 900 mg Acetaminophen can be repeated every four hours. Maximum dose not to exceed 4000 mg a day. These maximum recommended dosages are slightly higher than the dosages written on the product container, but these dosages are very safe and below the toxic dosage for acetaminophen. SPLINT PRECAUTIONS: A splint has been placed. This will protect the area while healing begins. Your problem does NOT normally require a cast. It MUST, however, be held still! Keep the splint on ALL THE TIME until instructed to remove it by the doctor. As you begin to use the area, be careful. You shouldn't do anything which causes discomfort -- you may disturb the injury even with the splint in place. After the initial period of rest and elevation, if splint does not prevent pain when you move, come back. You may require placement of a different splint , or a cast. If there is unexpected severe pain, or numbness, discoloration, or swelling beyond the splint, you should return at once. If you feel that the splint has broken or become loose, come back. ICE & ELEVATION: Apply ice packs frequently against the painful area. Many different schedules are recommended, such as "20 minutes on, 20 minutes off" or "one hour ice, two hours rest." If you need to work, you may need to go longer between ice treatments. You should plan to have the area ice packed AT LEAST one- fourth of the time. The ice should be applied over the wrap, tape, or splint, or over a layer of cloth -- not directly against the skin. Some ice bags have a built-in cloth and can be put directly on the skin. Your injured part should be elevated as much as possible over the next 48 hours. Try to keep the injury above the level of the heart. Avoid use of the injured area. Elevation and rest will decrease the swelling. USE OF [id number] IBUPROFEN: Ibuprofen (Advil, Nuprin, Medipren, Motrin IB) is a medication for fever and pain control. In addition, it has anti- inflammatory effects which may be beneficial, especially in the treatment of injuries. It's best to take ibuprofen with food. Persons with ulcer disease or allergy to aspirin should notify their physician of this before taking ibuprofen. Ibuprofen can be given every four to six hours, for a total of four doses daily. Age Pain or fever dose Antiinflammatory dose 6-8 yr 200 mg (1 tab) 200 mg (1 tab) 9-11 yr 200 mg (1 tab) 200-400 mg (1-2 tab) 11-14 yr 200-400 mg (1-2 tab) 400 mg (2 tab) 15-adult 400 mg (2 tab) 600 mg (3 tab) FOLLOW-UP CARE: If you have been referred to a physician for follow-up care, call the physician s office for an appointment as you were instructed or within the next two days. If you experience worsening or a significant change in your symptoms, notify the physician immediately or return to the Emergency Department at any time for re-evaluation. Prescriptions: Ibuprofen 800 mg PO Q8HP PRN #20 tablet PRN Reason: Forms: Elevated Blood Pressure, Smoking Cessation Education Referrals: ENIO GALVIN PA-C [Primary Care Provider] - Follow up as needed RUBA KAPLAN MD [ACTIVE STAFF] - Follow up as needed
[2017-05-30 20:54] VITALS: BP 137/86
--- NOTE | 2017-06-01 14:08 | RADIOLOGY REPORT (SQ) ---
EXAM DESCRIPTION: WRIST LEFT 3 VIEWS COMPLETED DATE/TIME: 05/30/2017 7:10 pm REASON FOR STUDY: pain and injury hit with ceiling fan sunday COMPARISON: None. NUMBER OF VIEWS: Three views. TECHNIQUE: AP, lateral, and oblique radiographic images acquired of the left wrist. LIMITATIONS: None. FINDINGS: MINERALIZATION: Normal. BONES: No acute fracture or dislocation. No worrisome bone lesions. Normal alignment. SOFT TISSUES: No soft tissue swelling. No foreign body. OTHER: No other significant finding. IMPRESSION: NEGATIVE STUDY OF THE LEFT WRIST. NO RADIOGRAPHIC EVIDENCE OF ACUTE INJURY. TECHNICAL DOCUMENTATION: JOB ID: [id number] [employer]- All Rights Reserved
== END 2017-05-30 20:53 | disposition home or self-care (01) ==
LOC: ER 18:21
DX: S60.212A Contusion of left wrist, initial encounter (principal); W22.8XXA Striking against or struck by other objects, initial encounter; Y93.89 Activity, other specified; Y92.009 Unspecified place in unspecified non-institutional (private) residence as the place of occurrence of the external cause; J45.909 Unspecified asthma, uncomplicated; F17.210 Nicotine dependence, cigarettes, uncomplicated; Z71.6 Tobacco abuse counseling
CPT/HCPCS: 99283; 73110; L3908

== ENCOUNTER 2017-07-29 10:36 | Emergency (ER) | payer MEDICAID ==
[2017-07-29 11:02] VITALS: BP 148/91
--- NOTE | 2017-07-29 11:06 | ER Document Report ---
ED Medical Screen (RME) - General Chief Complaint: Weakness Stated Complaint: LEG NUMBNESS Time Seen by Provider: 07/29/17 10:59 Mode of Arrival: Wheelchair Information source: Patient TRAVEL OUTSIDE OF THE [place] IN LAST 30 DAYS: No - HPI Patient complains to provider of: Lower extremity weakness Notes: 07/29/17 11:05 Patient is a 27-year-old male who woke up this morning with bilateral lower extremity weakness reminiscent of when he had hypokalemia a few months ago - Related Data Allergies/Adverse Reactions: No Known Allergies Allergy (Verified 07/29/17 10:59) Past Medical History Pulmonary Medical History: Reports: Hx Asthma Renal/ Medical History: Denies: Hx Peritoneal Dialysis Psychiatric Medical History: Reports: Hx Depression, Hx Schizoaffective Disorder , Hx Schizophrenia - effective - Immunizations Hx Diphtheria, Pertussis, Tetanus Vaccination: Yes Physical Exam - Vital signs Vitals: Temp Pulse Resp BP Pulse Ox 98.3 F 96 18 148/91 H 97 07/29/17 10:59 07/29/17 10:59 07/29/17 10:59 07/29/17 10:59 07/29/17 10:59 Course - Vital Signs Vital signs: Temp Pulse Resp BP Pulse Ox 98.3 F 96 18 148/91 H 97 07/29/17 10:59 07/29/17 10:59 07/29/17 10:59 07/29/17 10:59 07/29/17 10:59
[2017-07-29 11:29] LABS: APPEARANCE,URINE CLEAR; BILIRUBIN,URINE NEGATIVE (NEGATIVE); GLUCOSE, URINE >=500 mg/dL (NEGATIVE); KETONES,URINE TRACE mg/dL (NEGATIVE); LEUKOCYTE ESTERASE,URINE NEGATIVE (NEGATIVE); NITRITE,URINE NEGATIVE (NEGATIVE); PROTEIN,URINE NEGATIVE (NEGATIVE); URINE SPECIFIC GRAVITY 1.016; UROBILINOGEN,URINE NEGATIVE mg/dL (<2.0)
[2017-07-29 11:31] LABS: ABSOLUTE BASOPHILS # (AUTO) 0.1 10^3/uL (0.0-0.2); ABSOLUTE EOSINOPHILS # (AUTO) 0.2 10^3/uL (0.0-0.6); ABSOLUTE LYMPHOCYTES (AUTO) 2.6 10^3/uL (0.5-4.7); ABSOLUTE MONOCYTES (AUTO) 1.2 10^3/uL (0.1-1.4); ABSOLUTE NEUT (AUTO) 8.8 10^3/uL (1.7-8.2); BASOPHILS % (AUTO) 0.9 % (0-2); EOSINOPHILS % (AUTO) 1.2 % (0-6); HEMATOCRIT 40.6 % (37.9-51.0); HGB HCT DIFFERENCE 1.4; LYMPHOCYTES % (AUTO) 19.9 % (13-45); MEAN CORPUSCULAR HEMOGLOBIN 31.7 pg (27.0-33.4); MEAN CORPUSCULAR HGB CONC 34.3 g/dL (32.0-36.0); MEAN CORPUSCULAR VOLUME 92 fl (80-97); MONOCYTES % (AUTO) 9.4 % (3-13); RED CELL DISTRIBUTION WIDTH 13.6 % (11.5-14.0); SEGMENTED NEUTROPHILS % (AUTO) 68.6 % (42-78); WHITE BLOOD COUNT 12.9 10^3/uL (4.0-10.5)
[2017-07-29 11:54] LABS: ALANINE AMINOTRANSFERASE 38 U/L (21-72); ALBUMIN 4.2 g/dL (3.5-5.0); ALKALINE PHOSPHATASE 112 U/L (38-126); ANION GAP 13 (5-19); ASPARTATE AMINO TRANSFERASE 22 U/L (17-59); BILIRUBIN,DIRECT 0.2 mg/dL (0.0-0.4); BILIRUBIN,TOTAL 0.2 mg/dL (0.2-1.3); BLOOD UREA NITROGEN 5 mg/dL (7-20); CALCIUM 9.7 mg/dL (8.4-10.2); CARBON DIOXIDE 17 mmol/L (22-30); CHLORIDE 118 mmol/L (98-107); GLUCOSE 140 mg/dL (75-110); MAGNESIUM 1.9 mg/dL (1.6-2.3); SODIUM 148.1 mmol/L (137-145)
[2017-07-29 12:09] LABS: POTASSIUM 2.5 mmol/L (3.6-5.0)
[2017-07-29] MEDS ORDERED: POTASSIUM CHLORIDE 20 MEQ/15 ML UDCUP PO ONE (12:31)
--- NOTE | 2017-07-29 12:43 | ER Document Report ---
ED Dizziness/Weakness - General Chief Complaint: Weakness Stated Complaint: LEG NUMBNESS Time Seen by Provider: 07/29/17 10:59 Mode of Arrival: Wheelchair Information source: Patient, Parent Notes: 27 yo male with hx hypokalemia to 1.9 in past requiring admission has had recurrent diarrhea this week, none today. The numbness and weakness on the legs is similar but not as bad symptom. Hx disoociative disorder, psychoaffective disorder, social anxiety. Prarents in the room during history and physical, and help him decide about dispostion. TRAVEL OUTSIDE OF THE [place] IN LAST 30 DAYS: No - HPI Onset: This morning - Related Data Allergies/Adverse Reactions: No Known Allergies Allergy (Verified 07/29/17 10:59) Past Medical History - General Information source: Patient - Social History Smoking Status: Current Every Day Smoker Chew tobacco use (# tins/day): No Frequency of alcohol use: Rare Drug Abuse: None Lives with: Parents Family History: COPD, DM, Malignancy Pulmonary Medical History: Reports: Hx Asthma Renal/ Medical History: Denies: Hx Peritoneal Dialysis Psychiatric Medical History: Reports: Hx Depression, Hx Schizoaffective Disorder , Hx Schizophrenia - effective Surgical Hx: Negative - Immunizations Hx Diphtheria, Pertussis, Tetanus Vaccination: Yes Review of Systems - Review of Systems Constitutional: No symptoms reported EENT: No symptoms reported Cardiovascular: No symptoms reported Respiratory: No symptoms reported Gastrointestinal: No symptoms reported Genitourinary: No symptoms reported Male Genitourinary: No symptoms reported Musculoskeletal: See HPI Skin: No symptoms reported Hematologic/Lymphatic: No symptoms reported Neurological/Psychological: See HPI Physical Exam - Vital signs Vitals: Temp Pulse Resp BP Pulse Ox 98.3 F 96 18 148/91 H 97 07/29/17 10:59 07/29/17 10:59 07/29/17 10:59 07/29/17 10:59 07/29/17 10:59 Interpretation: Normal - General General appearance: Appears well, Alert In distress: None - HEENT Head: Normocephalic, Atraumatic Eyes: Normal Pupils: PERRL Neck: Supple - Respiratory Respiratory status: No respiratory distress Chest status: Nontender Breath sounds: Normal Chest palpation: Normal - Cardiovascular Rhythm: Regular Heart sounds: Normal auscultation Murmur: No - Abdominal Inspection: Normal Distension: No distension Bowel sounds: Normal Tenderness: Nontender Organomegaly: No organomegaly - Back Back: Normal, Nontender - Extremities General upper extremity: Normal inspection, Nontender, Normal color, Normal ROM , Normal temperature General lower extremity: Normal inspection, Nontender, Normal color, Normal ROM , Normal temperature, Normal weight bearing. No: Cristóbal's sign Thigh: Nontender, Other - resistant strength weaker when seated and trying to lift bent leg. Gait stable and normal. He has inability to get legs up onto the bed when seated. - Neurological Neuro grossly intact: Yes Cognition: Normal Orientation: AAOx4 [place] Coma Scale Eye Opening: Spontaneous Jeanne Coma Scale Verbal: Oriented Jeanne Coma Scale Motor: Obeys Commands [place] Coma Scale Total: 15 Speech: Normal Motor strength normal: LUE, RUE, LLE, RLE Sensory: Normal - Psychological Associated symptoms: Normal affect, Normal mood - Skin Skin Temperature: Warm Skin Moisture: Dry Skin Color: Normal Course - Re-evaluation Re-evalutation: 07/29/17 Pt and the parents are OK with discharge home with taking the potassium as ordered and eating a bannana. They are familiar with this weakness due to low potassium and it is not as bad as the first episode. Consult Dr. Castillo, and OK with the planned potassium replacement and EKG not needed. - Vital Signs Vital signs: Temp Pulse Resp BP Pulse Ox 98.3 F 96 18 148/91 H 97 07/29/17 11:01 07/29/17 11:01 07/29/17 11:01 07/29/17 11:01 07/29/17 11:01 - Laboratory Result Diagrams: 07/29/17 11:16 07/29/17 11:16 Laboratory results interpreted by me: 07/29/17 07/29/17 07/29/17 11:16 11:16 11:16 WBC 12.9 H Absolute Neutrophils 8.8 H Sodium 148.1 H Potassium 2.5 L* Chloride 118 H Carbon Dioxide 17 L BUN 5 L Glucose 140 H Urine Glucose (UA) >=500 H Urine Ketones TRACE H Discharge - Discharge Clinical Impression: Hypokalemia, diarrhea, weak thigh muscles Condition: Good Disposition: HOME, SELF-CARE Instructions: Hypokalemia ([facility]), Weakness ([facility]) Additional Instructions: eat a banana daily oral potassium 20meq daily, and dose tonight get the vibersi refilled today to er if symptoms worsen see your doctor this week eat yogurt with active culture Prescriptions: Potassium Chloride [K-Tab ER] 20 meq PO DAILY #30 tablet.er Referrals: ENIO GALVIN PA-C [Primary Care Provider] - Follow up tomorrow
== END 2017-07-29 13:43 | disposition home or self-care (01) ==
LOC: ER 10:36
DX: E87.6 Hypokalemia (principal); R19.7 Diarrhea, unspecified; M62.81 Muscle weakness (generalized); R20.0 Anesthesia of skin; F17.200 Nicotine dependence, unspecified, uncomplicated
CPT/HCPCS: 99284; 36415; 83735; 85025; 80053; 81001; J3490

== ENCOUNTER 2017-10-11 20:22 | Emergency (ER) | payer MEDICAID ==
--- NOTE | 2017-10-11 20:56 | RADIOLOGY REPORT (SQ) ---
EXAM DESCRIPTION: ANKLE RIGHT COMPLETE COMPLETED DATE/TIME: 10/11/2017 8:39 pm REASON FOR STUDY: ankle pain COMPARISON: None. NUMBER OF VIEWS: Three views. TECHNIQUE: AP, lateral, and oblique radiographic images acquired of the right ankle. LIMITATIONS: None. FINDINGS: MINERALIZATION: Normal. BONES: No acute fracture or dislocation. No worrisome bone lesions. JOINTS: No effusions. SOFT TISSUES: Mild lateral soft tissue swelling. No foreign body. OTHER: No other significant finding. IMPRESSION: No fracture. TECHNICAL DOCUMENTATION: JOB ID: [id number] [place]-72 2010 [employer]- All Rights Reserved
--- NOTE | 2017-10-11 21:08 | ER Document Report ---
HPI - HPI Pain Level: 4 Notes: Patient is a 27-year-old male who presents the ED complaining of right lateral ankle pain status post twist injury last night. Patient states that he twisted his ankle running to his mother's car. Patient states that he has pain to the right ankle but does not radiate and is described as sharp. Patient is able to limp on that foot. He has no other significant past medical history or drug allergies. No other concerns or complaints. Denies any headache, fever, chest pain, palpitations, syncope, cough, shortness of breath, wheeze, dyspnea, abdominal pain, nausea/vomiting/diarrhea, urinary retention, dysuria, hematuria , loss of control of bowel or bladder, numbness/tingling, muscle paralysis/ weakness, or rash. - ROS Notes: REVIEW OF SYSTEMS: CONSTITUTIONAL : Denies fever, chills, or sweats. Denies recent illness. EENT: Denies eye, ear, throat, or mouth pain or symptoms. Denies nasal or sinus congestion or discharge. Denies throat, tongue, or mouth swelling or difficulty swallowing. CARDIOVASCULAR: Denies chest pain. Denies palpitations or racing or irregular heart beat. Denies ankle edema. RESPIRATORY: Denies cough, cold, or chest congestion. Denies shortness of breath, difficulty breathing, or wheezing. GASTROINTESTINAL: Denies abdominal pain or distention. Denies nausea, vomiting , or diarrhea. GENITOURINARY: Denies difficulty urinating, painful urination, burning, frequency, blood in urine, or discharge. MUSCULOSKELETAL: see hpi SKIN: Denies rash, lesions or sores. NEUROLOGICAL: Denies dizziness or lightheadedness. Denies headache. Denies weakness or paralysis or loss of use of either side. Denies problems with gait or speech. Denies sensory loss, numbness, or tingling. Denies seizures. ALL OTHER SYSTEMS REVIEWED AND NEGATIVE. Dictation was performed using [employer] voice recognition software - MUSCULOSKELETAL Musculoskeletal: REPORTS: Extremity pain - right ankle Past Medical History - Social History Smoking Status: Current Every Day Smoker Chew tobacco use (# tins/day): No Frequency of alcohol use: Rare Drug Abuse: Marijuana Family History: COPD, DM, Malignancy Patient has suicidal ideation: No Patient has homicidal ideation: No Pulmonary Medical History: Reports: Hx Asthma Renal/ Medical History: Denies: Hx Peritoneal Dialysis Psychiatric Medical History: Reports: Hx Depression, Hx Schizoaffective Disorder , Hx Schizophrenia - effective - Immunizations Hx Diphtheria, Pertussis, Tetanus Vaccination: Yes Vertical Provider Document - CONSTITUTIONAL Agree With Documented VS: Yes Notes: PHYSICAL EXAMINATION: GENERAL: Well-appearing, well-nourished and in no acute distress. LUNGS: Breath sounds clear to auscultation bilaterally and equal. No wheezes rales or rhonchi. HEART: Regular rate and rhythm without murmurs, rubs, gallops. Musculoskeletal: Rt foot/ankle: FROM to passive/active. Strength 5+/5. N/V intact. + mild swelling and minimal ecchymosis to the lateral malleolus. + tenderness to palp of the lateral malleolus and inferiorly. No other bony tenderness. Achilles intact. Extremities: No cyanosis, clubbing, or edema b/l. Peripheral pulses 2+. Capillary refill less than 3 seconds. NEUROLOGICAL: Normal speech, limping gait. Normal sensory, motor exams PSYCH: Normal mood, normal affect. SKIN: Warm, Dry, normal turgor, no rashes or lesions noted. - INFECTION CONTROL TRAVEL OUTSIDE OF THE [place] IN LAST 30 DAYS: No - RESPIRATORY O2 Sat by Pulse Oximetry: 98 Course - Re-evaluation Re-evalutation: 10/11/17 21:08 Patient is an afebrile, well-hydrated, 27-year-old male who presents to the ED with right ankle pain, suspect sprain versus strain. Vitals are stable. PE is otherwise unremarkable for any neurovascular compromise, obvious tendon/ ligament rupture, obvious fractures/dislocation, septic joint. X-ray was unremarkable for any acute pathology. An ankle stirrup splint was placed and crutches were given. Patient declined any Tylenol or Motrin today. Recommend conservative measures otherwise for symptoms. Recheck with your PCM in 3-5 days. Consider consult orthopedics and physical therapy. Return to the ED with any worsening/concerning symptoms otherwise as reviewed in discharge. Patient is in agreement. - Vital Signs Vital signs: Temp Pulse Resp BP Pulse Ox 98.7 F 105 H 18 163/88 H 98 10/11/17 20:29 10/11/17 20:29 10/11/17 20:29 10/11/17 20:29 10/11/17 20:29 Discharge - Discharge Clinical Impression: Pain in lateral portion of right ankle Condition: Stable Disposition: HOME, SELF-CARE Instructions: Ankle Stirrup Splint ([facility]), Ice & Elevation ([facility]), Sprained Ankle ([facility]), Use of Crutches ([facility]) Additional Instructions: Rest, Ice, Compression, Elevation Use crutches/splint as directed Tylenol/ibuprofen as needed Light stretches daily Strength exercises as able Moist heat and massage may help F/u with your PCP in 3-5 days for a recheck Consider consult(s) with Orthopedics/physical therapy for ongoing/worsening symptoms Return to the ED with any worsening symptoms and/or development of fever, headache, chest pain, palpitations, syncope, shortness of breath, trouble breathing, abdominal pain, n/v/d, muscle weakness/paralysis, numbness/tingling, swelling, redness, or other worsening symptoms that are concerning to you. Forms: Elevated Blood Pressure, Smoking Cessation Education Referrals: ENIO GALVIN PA-C [Primary Care Provider] - Follow up in 3-5 days [facility] [Provider Group] - Follow up as needed
[2017-10-11 21:47] VITALS: BP 174/90
== END 2017-10-11 21:45 | disposition home or self-care (01) ==
LOC: ER 20:22
PROC: 2W3QX1Z Immobilization of Right Lower Leg using Splint (ICD-10-PCS; principal; 2017-10-11)
DX: M25.571 Pain in right ankle and joints of right foot (principal); X50.1XXA Overexertion from prolonged static or awkward postures, initial encounter; F17.200 Nicotine dependence, unspecified, uncomplicated
CPT/HCPCS: 99283; 73610; 29515; L1902

== ENCOUNTER 2017-10-13 19:39 | Emergency (ER) | payer MEDICAID ==
--- NOTE | 2017-10-13 21:43 | ER Document Report ---
ED Extremity Problem, Lower - General Chief Complaint: Leg Pain Stated Complaint: RIGHT LEG PAIN Time Seen by Provider: 10/13/17 21:32 Mode of Arrival: Ambulatory Information source: Patient Notes: 27-year-old male presented to ED for complaint of leg pain to his right lower leg. He states he was seen on 1228 and diagnosed with an injury to his right ankle and was placed in a stirrup splint told to exercise the ankle take Tylenol and Motrin and to use crutches and to follow-up with his primary doctor. He states that he is only taken the splint off to shower and other than that he is kept it on as instructed and tonight his ankle was much more painful than before. He denies any new injuries. TRAVEL OUTSIDE OF THE [place] IN LAST 30 DAYS: No - HPI Patient complains to provider of: Pain Location: Leg Occurred: Other - Had an ankle injury on the October 11 2017 he was seen in the ER and placed in a stirrup splint states the pain became much worse this afternoon. Onset/Duration: Worse Quality of pain: Pressure, Sharp Severity: Moderate Pain Level: 4 Context: Other - Painful ambulation Recent injury: Yes Associated symptoms: Painful ambulation Exacerbated by: Hanging down, Movement, Walking Relieved by: Nothing - Related Data Allergies/Adverse Reactions: No Known Allergies Allergy (Verified 10/11/17 20:22) Past Medical History - General Information source: Patient - Social History Smoking Status: Current Every Day Smoker Cigarette use (# per day): Yes - Pack per day Chew tobacco use (# tins/day): No Smoking Education Provided: Yes - 2 minutes Frequency of alcohol use: Rare - Yearly Drug Abuse: Marijuana Lives with: Family Family History: COPD, DM, Malignancy. denies: Arthritis, CAD, CVA, Hyperlipidemia, Hypertension, Thyroid Disfunction Patient has suicidal ideation: No Patient has homicidal ideation: No - Past Medical History Cardiac Medical History: Reports: None Pulmonary Medical History: Reports: Hx Asthma EENT Medical History: Reports: None Neurological Medical History: Reports: None Endocrine Medical History: Reports: None Renal/ Medical History: Reports: None Malignancy Medical History: Reports None GI Medical History: Reports: None Musculoskeltal Medical History: Reports Hx Musculoskeletal Trauma Skin Medical History: Reports None Psychiatric Medical History: Reports: Hx Depression, Hx Schizoaffective Disorder , Hx Schizophrenia - effective Traumatic Medical History: Reports: None Infectious Medical History: Reports: None Surgical Hx: Negative Past Surgical History: Reports: None - Immunizations Hx Diphtheria, Pertussis, Tetanus Vaccination: Yes Review of Systems - Review of Systems Constitutional: No symptoms reported EENT: No symptoms reported Cardiovascular: No symptoms reported Respiratory: No symptoms reported Gastrointestinal: No symptoms reported Genitourinary: No symptoms reported Male Genitourinary: No symptoms reported Musculoskeletal: Other - Right ankle pain Skin: No symptoms reported Hematologic/Lymphatic: No symptoms reported Neurological/Psychological: No symptoms reported Physical Exam - Vital signs Vitals: Temp Pulse Resp BP Pulse Ox 99.1 F 114 H 18 151/87 H 94 10/13/17 19:44 10/13/17 19:44 10/13/17 19:44 10/13/17 19:44 10/13/17 19:44 Interpretation: Normal - General General appearance: Appears well, Alert - HEENT Head: Normocephalic, Atraumatic Eyes: Normal Pupils: PERRL - Respiratory Respiratory status: No respiratory distress Chest status: Nontender Breath sounds: Normal Chest palpation: Normal - Cardiovascular Rhythm: Regular Heart sounds: Normal auscultation Murmur: No - Abdominal Inspection: Normal Distension: No distension Bowel sounds: Normal Tenderness: Nontender Organomegaly: No organomegaly - Back Back: Normal, Nontender - Extremities General upper extremity: Normal inspection, Nontender, Normal color, Normal ROM , Normal temperature General lower extremity: Normal inspection, Normal color, Normal ROM, Normal temperature, Normal weight bearing. No: Cristóbal's sign Ankle: Tender, Other - Wound stirrup splint was removed from his right ankle there was ramirez from how tight the stirrup splint had been applied. When I removed the splint the patient stated that the pain was much better. - Neurological Neuro grossly intact: Yes Cognition: Normal Orientation: AAOx4 [place] Coma Scale Eye Opening: Spontaneous Jeanne Coma Scale Verbal: Oriented [place] Coma Scale Motor: Obeys Commands [place] Coma Scale Total: 15 Speech: Normal Motor strength normal: LUE, RUE, LLE, RLE Sensory: Normal - Psychological Associated symptoms: Normal affect, Normal mood - Skin Skin Temperature: Warm Skin Moisture: Dry Skin Color: Normal Course - Vital Signs Vital signs: Temp Pulse Resp BP Pulse Ox 98.2 F 101 H 20 134/73 H 96 10/13/17 21:54 12/30/17 21:54 10/13/17 21:54 10/13/17 21:54 10/13/17 21:54 Discharge - Discharge Clinical Impression: leg pain from stirrup splint too tight HTN (hypertension) Qualifiers: Hypertension type: unspecified Qualified Code(s): I10 - Essential (primary) hypertension Condition: Stable Disposition: HOME, SELF-CARE Additional Instructions: You were seen today for pain in your ankle. You were treated in the emergency room on the and sent home with a stirrup splint on you states you have kept on except for when bathing. Your splint was on so tight that it left ramirez in your leg. Please wear the splint as I showed you. Do not put it on too tight. When you are not walking please elevate your leg. ICE & ELEVATION: Apply ice packs frequently against the painful area. Many different schedules are recommended, such as "20 minutes on, 20 minutes off" or "one hour ice, two hours rest." If you need to work, you may need to go longer between ice treatments. You should plan to have the area ice packed AT LEAST one- fourth of the time. The ice should be applied over the wrap, tape, or splint, or over a layer of cloth -- not directly against the skin. Some ice bags have a built-in cloth and can be put directly on the skin. Your injured part should be elevated as much as possible over the next 48 hours. Try to keep the injury above the level of the heart. Avoid use of the injured area. Elevation and rest will decrease the swelling. USE OF [id number] IBUPROFEN: Ibuprofen (Advil, Nuprin, Medipren, Motrin IB) is a medication for fever and pain control. In addition, it has anti- inflammatory effects which may be beneficial, especially in the treatment of injuries. It's best to take ibuprofen with food. Persons with ulcer disease or allergy to aspirin should notify their physician of this before taking ibuprofen. Ibuprofen can be given every four to six hours, for a total of four doses daily. Age Pain or fever dose Antiinflammatory dose 6-8 yr 200 mg (1 tab) 200 mg (1 tab) 9-11 yr 200 mg (1 tab) 200-400 mg (1-2 tab) 11-14 yr 200-400 mg (1-2 tab) 400 mg (2 tab) 15-adult 400 mg (2 tab) 600 mg (3 tab) High Blood Pressure When your blood pressure was taken today it was elevated. Today's reading was____151/87 . Pre-hypertension/Hypertension: The patient has been informed that they may have pre-hypertension or Hypertension based on a blood pressure reading in the emergency department. I recommend that the patient call the primary care provider listed on their discharge instructions or a physician of their choice this wee to arrange follow up for further evaluation of possible pre- hypertension or Hypertension. Sometimes, stress or illness causes a temporary elevation of your blood pressure. We suggest that you get your blood pressure measured three more times during the next few days to see if this is more than a temporary abnormality. If your blood pressure is greater than 150/90 on each occasion, you must have treatment. Some simple things you can do to help are: If you have blood pressure medicine but aren't using it regularly, start taking it again. Get some aerobic exercise for at least 20 minutes on a daily basis. (See your doctor before beginning a new exercise program.) Eat a low-fat diet. Lose excess weight. Avoid salty foods and avoid adding salt to any of the foods you eat. Avoid diet pills, decongestants, "energizing" herbs, and other medicines that elevate blood pressure. If left untreated, hypertension greatly enhances your risk for developing heart disease and strokes. Please don't ignore this problem. FOLLOW-UP CARE: If you have been referred to a physician for follow-up care, call the physician s office for an appointment as you were instructed or within the next two days. If you experience worsening or a significant change in your symptoms, notify the physician immediately or return to the Emergency Department at any time for re-evaluation. Forms: Smoking Cessation Education, Elevated Blood Pressure Referrals: ENIO GALVIN PA-C [Primary Care Provider] - Follow up as needed RUBA KAPLAN MD [ACTIVE STAFF] - Follow up as needed
[2017-10-13 21:55] VITALS: BP 134/73
== END 2017-10-13 22:21 | disposition home or self-care (01) ==
LOC: ER 19:39
DX: S99.911D Unspecified injury of right ankle, subsequent encounter (principal); X58.XXXD Exposure to other specified factors, subsequent encounter; I10 Essential (primary) hypertension; F17.210 Nicotine dependence, cigarettes, uncomplicated; Z71.6 Tobacco abuse counseling
CPT/HCPCS: 99283

== ENCOUNTER 2017-12-06 20:10 | Emergency (ER) | payer MEDICAID ==
--- NOTE | 2017-12-06 20:59 | ER Document Report ---
HPI - HPI Patient complains to provider of: right foot injury Onset: Other - 2 days ago Pain Level: 4 Context: 27 yo male had cinder block fall on shord right foot 2 days ago. Swollen and painful. Is walking on it. Associated Symptoms: None Exacerbated by: Denies Relieved by: Denies Similar symptoms previously: No Recently seen / treated by doctor: No - ROS ROS below otherwise negative: Yes Systems Reviewed and Negative: Yes All other systems reviewed and negative - MUSCULOSKELETAL Musculoskeletal: REPORTS: Extremity pain Past Medical History - General Information source: Patient - Social History Smoking Status: Current Every Day Smoker Frequency of alcohol use: None Drug Abuse: None Lives with: Friend Family History: COPD, DM, Malignancy Patient has suicidal ideation: No Patient has homicidal ideation: No Pulmonary Medical History: Reports: Hx Asthma Renal/ Medical History: Denies: Hx Peritoneal Dialysis Musculoskeltal Medical History: Reports Hx Musculoskeletal Trauma Psychiatric Medical History: Reports: Hx Depression, Hx Schizoaffective Disorder , Hx Schizophrenia - effective Surgical Hx: Negative - Immunizations Hx Diphtheria, Pertussis, Tetanus Vaccination: Yes Vertical Provider Document - CONSTITUTIONAL Agree With Documented VS: Yes Exam Limitations: No Limitations General Appearance: No Apparent Distress - INFECTION CONTROL TRAVEL OUTSIDE OF THE [place] IN LAST 30 DAYS: No - HEENT HEENT: Normocephalic - NECK Neck: Supple - RESPIRATORY O2 Sat by Pulse Oximetry: 97 - MUSCULOSKELETAL/EXTREMETIES Musculoskeletal/Extremeties: MAEW, FROM, Tender - dorsal right foot, 2+ DP, N/V intact distally - NEURO Level of Consciousness: Awake, Alert Motor/Sensory: No Motor Deficit, No Sensory Deficit Course - Re-evaluation Re-evalutation: 12/06/17 21:28 X-rays are negative per radiologist - Vital Signs Vital signs: Temp Pulse Resp BP Pulse Ox 99.1 F 96 20 145/91 H 97 12/06/17 20:24 12/06/17 20:24 12/06/17 20:24 12/06/17 20:24 12/06/17 20:24 Discharge - Discharge Clinical Impression: Right foot contusion Condition: Good Disposition: HOME, SELF-CARE Instructions: Acetaminophen, Giles Wrap ([facility]), Contusion ([facility]), Use of Over-The- Counter Ibuprofen ([facility]) Additional Instructions: giles wrap for comfort tylenol and motrin for pain see your doctor for follow up any concerns Referrals: ENIO GALVIN PA-C [Primary Care Provider] - Follow up as needed
--- NOTE | 2017-12-06 21:14 | RADIOLOGY REPORT (SQ) ---
EXAM DESCRIPTION: ANKLE RIGHT COMPLETE; FOOT RIGHT COMPLETE COMPLETED DATE/TIME: 12/06/2017 8:54 pm REASON FOR STUDY: cinder block on foot x 3 days ago COMPARISON: None. NUMBER OF VIEWS: 6 TECHNIQUE: AP, lateral, and oblique radiographic images acquired of the right foot and ankle. LIMITATIONS: None. FINDINGS: MINERALIZATION: Normal. BONES: No acute fracture or dislocation. No worrisome bone lesions. JOINTS: No effusions. SOFT TISSUES: No soft tissue swelling. No foreign body. OTHER: No other significant finding. IMPRESSION: No fracture. TECHNICAL DOCUMENTATION: JOB ID: [id number] [place]-72 2010 [employer]- All Rights Reserved
--- NOTE | 2017-12-06 21:14 | RADIOLOGY REPORT (SQ) ---
EXAM DESCRIPTION: ANKLE RIGHT COMPLETE; FOOT RIGHT COMPLETE COMPLETED DATE/TIME: 12/06/2017 8:54 pm REASON FOR STUDY: cinder block on foot x 3 days ago COMPARISON: None. NUMBER OF VIEWS: 6 TECHNIQUE: AP, lateral, and oblique radiographic images acquired of the right foot and ankle. LIMITATIONS: None. FINDINGS: MINERALIZATION: Normal. BONES: No acute fracture or dislocation. No worrisome bone lesions. JOINTS: No effusions. SOFT TISSUES: No soft tissue swelling. No foreign body. OTHER: No other significant finding. IMPRESSION: No fracture. TECHNICAL DOCUMENTATION: JOB ID: [id number] [place]-72 2010 [employer]- All Rights Reserved
[2017-12-06 21:46] VITALS: BP 148/93
== END 2017-12-06 21:48 | disposition home or self-care (01) ==
LOC: ER 20:10
DX: S90.31XA Contusion of right foot, initial encounter (principal); F17.200 Nicotine dependence, unspecified, uncomplicated; W20.8XXA Other cause of strike by thrown, projected or falling object, initial encounter
CPT/HCPCS: 99283

== ENCOUNTER 2017-12-11 19:46 | Emergency (ER) | payer MEDICAID ==
--- NOTE | 2017-12-11 20:37 | EKG REPORT ---
SEVERITY:- ABNORMAL ECG - SINUS TACHYCARDIA PROLONGED QT INTERVAL NONSPECIFIC ST-T CHANGES ANTERIOR LEAD. : Confirmed by: Quinton Coffey MD 11-Dec-2017 20:37:05
--- NOTE | 2017-12-11 21:38 | RADIOLOGY REPORT (SQ) ---
EXAM DESCRIPTION: CHEST SINGLE VIEW COMPLETED DATE/TIME: 12/11/2017 9:10 pm REASON FOR STUDY: sob, chest pain COMPARISON: None. EXAM PARAMETERS: NUMBER OF VIEWS: One view. TECHNIQUE: Single frontal radiographic view of the chest acquired. RADIATION DOSE: NA LIMITATIONS: None. FINDINGS: LUNGS AND PLEURA: No opacities, masses or pneumothorax. No pleural effusion. MEDIASTINUM AND HILAR STRUCTURES: No masses. Contour normal. HEART AND VASCULAR STRUCTURES: Heart normal in size. Normal vasculature. BONES: No acute findings. HARDWARE: None in the chest. OTHER: No other significant finding. IMPRESSION: NO ACUTE RADIOGRAPHIC FINDING IN THE CHEST. TECHNICAL DOCUMENTATION: JOB ID: [id number] [employer]- All Rights Reserved Reading location - IP/workstation name: [email or web address]
[2017-12-11] MEDS ORDERED: IBUPROFEN 600 MG TABLET PO ONE (21:46)
[2017-12-11] MEDS ORDERED: LIDOCAINE 5% (700 MG) TRANSDERMAL ADH..PATCH TP ONE (22:07)
[2017-12-11] MEDS ORDERED: ACETAMINOPHEN 325 MG TABLET PO ONE (22:07)
[2017-12-11 22:13] LABS: ABSOLUTE BASOPHILS # (AUTO) 0.2 10^3/uL (0.0-0.2); ABSOLUTE EOSINOPHILS # (AUTO) 0.4 10^3/uL (0.0-0.6); ABSOLUTE LYMPHOCYTES (AUTO) 3.2 10^3/uL (0.5-4.7); ABSOLUTE MONOCYTES (AUTO) 1.3 10^3/uL (0.1-1.4); ABSOLUTE NEUT (AUTO) 10.2 10^3/uL (1.7-8.2); BASOPHILS % (AUTO) 1.2 % (0-2); EOSINOPHILS % (AUTO) 2.3 % (0-6); HEMATOCRIT 39.5 % (37.9-51.0); HEMOGLOBIN 13.5 g/dL (13.5-17.0); LYMPHOCYTES % (AUTO) 20.8 % (13-45); MEAN CORPUSCULAR HEMOGLOBIN 31.8 pg (27.0-33.4); MEAN CORPUSCULAR HGB CONC 34.2 g/dL (32.0-36.0); MEAN CORPUSCULAR VOLUME 93 fl (80-97); MONOCYTES % (AUTO) 8.7 % (3-13); PLATELET COUNT 312 10^3/uL (150-450); RED BLOOD COUNT 4.26 10^6/uL (4.35-5.55); RED CELL DISTRIBUTION WIDTH 13.6 % (11.5-14.0); TOTAL CELLS COUNTED % (AUTO) 100 %; WHITE BLOOD COUNT 15.3 10^3/uL (4.0-10.5)
[2017-12-11 22:27] LABS: ANION GAP 14 (5-19); BLOOD UREA NITROGEN 4 mg/dL (7-20); CALCIUM 9.7 mg/dL (8.4-10.2); CARBON DIOXIDE 23 mmol/L (22-30); CHLORIDE 104 mmol/L (98-107); GLUCOSE 109 mg/dL (75-110); POTASSIUM 3.9 mmol/L (3.6-5.0); SODIUM 141.2 mmol/L (137-145)
--- NOTE | 2017-12-11 22:27 | ER Document Report ---
ED General - General Chief Complaint: Chest Pain Stated Complaint: CHEST PAIN Time Seen by Provider: 12/11/17 20:31 Notes: Patient is a 27-year-old male with a past medical history of schizophrenia who presents with 2 days of left-sided chest wall pain. He does describe it as a stabbing, constant, aching pain that is worsened by movement, coughing and breathing. He has had an upper respiratory infection and has had persistent coughing over the last 1 week. He states that this pain started after coughing for approximately 5 or 6 days. He has not tried any to improve the pain. He denies any history of similar symptoms in the past. He has not seen his general physician regarding today's concerns. He denies any shortness of breath , hemoptysis, fever, or syncope. No history of DVT or pulmonary embolus. TRAVEL OUTSIDE OF THE [place] IN LAST 30 DAYS: No - Related Data Allergies/Adverse Reactions: No Known Allergies Allergy (Verified 10/11/17 20:22) Past Medical History - General Information source: Patient - Social History Smoking Status: Current Every Day Smoker Frequency of alcohol use: Rare Drug Abuse: Marijuana Lives with: Friend Family History: COPD, DM, Malignancy Patient has suicidal ideation: No Patient has homicidal ideation: No Pulmonary Medical History: Reports: Hx Asthma Renal/ Medical History: Denies: Hx Peritoneal Dialysis Musculoskeltal Medical History: Reports Hx Musculoskeletal Trauma Psychiatric Medical History: Reports: Hx Depression, Hx Schizoaffective Disorder , Hx Schizophrenia - effective - Immunizations Hx Diphtheria, Pertussis, Tetanus Vaccination: Yes Review of Systems - Review of Systems Notes: Constitutional: Negative for fever. HENT: Negative for sore throat. Eyes: Negative for visual changes. Cardiovascular: Negative for chest pain. Respiratory: Negative for shortness of breath. Gastrointestinal: Negative for abdominal pain, vomiting or diarrhea. Genitourinary: Negative for dysuria. Musculoskeletal: Positive for chest wall pain Skin: Negative for rash. Neurological: Negative for headaches, weakness or numbness. 10 point ROS negative except as marked above and in HPI. Physical Exam - Vital signs Vitals: Temp Pulse Resp BP Pulse Ox 98.7 F 106 H 16 151/86 H 97 12/11/17 20:03 12/11/17 20:03 12/11/17 20:03 12/11/17 20:03 12/11/17 20:03 Interpretation: Tachycardic Notes: PHYSICAL EXAMINATION: GENERAL: Well-appearing, well-nourished and in no acute distress. HEAD: Atraumatic, normocephalic. EYES: Pupils equal round and reactive to light, extraocular movements intact, sclera anicteric, conjunctiva are normal. ENT: nares patent, oropharynx clear without exudates. Moist mucous membranes. NECK: Normal range of motion, supple without lymphadenopathy LUNGS: Breath sounds clear to auscultation bilaterally and equal. No wheezes rales or rhonchi. HEART: Regular rate and rhythm without murmurs Chest wall: Pain reproduced on palpation of the left central chest wall ABDOMEN: Soft, nontender, normoactive bowel sounds. No guarding, no rebound. No masses appreciated. EXTREMITIES: Normal range of motion, no pitting or edema. No cyanosis. NEUROLOGICAL: No focal neurological deficits. Moves all extremities spontaneously and on command. PSYCH: Normal mood, normal affect. SKIN: Warm, Dry, normal turgor, no rashes or lesions noted. Course - Re-evaluation Re-evalutation: 12/11/17 22:28 Patient presented with chest wall pain reproducible with movement, coughing and palpation of the chest wall most consistent with costochondritis in the setting of repeated coughing over the past 1 week. Chest x-ray is clear without any evidence of rib fractures, infiltrate or pneumothorax. EKG showed tachycardia but no additional findings. Patient denied any shortness of breath although given the pleuritic nature of his pain a d-dimer was sent. This is negative and have a very low clinical overall suspicion for pulmonary embolus as the etiology of the patient's presentation. Patient has been treated with ibuprofen , Tylenol and topical lidocaine. At this time will discharge with return precautions and follow-up recommendations. Verbal discharge instructions given a the bedside and opportunity for questions given. Medication warnings reviewed. Patient is in agreement with this plan and has verbalized understanding of return precautions and the need for primary care follow-up in the next 24-72 hours. - Vital Signs Vital signs: Temp Pulse Resp BP Pulse Ox 98.3 F 98 20 149/82 H 96 12/11/17 23:09 12/11/17 23:09 12/11/17 23:09 12/11/17 23:09 12/11/17 23:09 - Laboratory Result Diagrams: 12/11/17 21:55 12/11/17 21:55 Laboratory results interpreted by me: 12/11/17 12/11/17 21:55 21:55 WBC 15.3 H RBC 4.26 L Absolute Neutrophils 10.2 H BUN 4 L - Diagnostic Test Radiology reviewed: Image reviewed, Reports reviewed Radiology results interpreted by me: 12/11/17 22:28 Chest x-ray: No acute infiltrate or pneumothorax - EKG Interpretation by Me Additional EKG results interpreted by me: 12/11/17 22:29 Sinus tachycardia. Rate 110. No ST elevations or depressions. QTC is 493. Discharge - Discharge Clinical Impression: Costochondritis, Left-sided chest wall pain Condition: Good Disposition: HOME, SELF-CARE Additional Instructions: Your chest wall pain is due inflammation of your chest wall. This pain can last for up to 6 weeks. It is very important that you continue to take purposeful deep breaths. For your pain: Continue to take ibuprofen 600 mg every 6 hours or Tylenol 1000 mg every 6 hours. Apply local lidocaine to the area per bottle instructions. There is a product sold [id number] called "Aspercreme with lidocaine" that you can use for this purpose. Please follow- up with your primary care doctor in the next 2-3 days. Return to the emergency department immediately if you develop worsening shortness of breath, increased pain, begin coughing blood, pass out, or have any other symptoms that are worrisome to you. Referrals: ALBERT TORRES, [Primary Care Provider] - Follow up as needed
[2017-12-11 23:11] VITALS: BP 149/82
== END 2017-12-11 23:04 | disposition home or self-care (01) ==
LOC: ER 19:46
DX: M94.0 Chondrocostal junction syndrome [Tietze] (principal); R07.89 Other chest pain; R05 Cough; R00.0 Tachycardia, unspecified; J45.909 Unspecified asthma, uncomplicated; F17.200 Nicotine dependence, unspecified, uncomplicated; F12.10 Cannabis abuse, uncomplicated
CPT/HCPCS: 93005; 99284; 36415; 85025; 80048; 85379; 71045; 93010; J3490 ×3

== ENCOUNTER → 2018-02-15 | Outpatient (CLI) | payer MEDICAID ==
[2018-02-15 14:47] LABS: ABSOLUTE BASOPHILS # (AUTO) 0.1 10^3/uL (0.0-0.2); ABSOLUTE EOSINOPHILS # (AUTO) 0.1 10^3/uL (0.0-0.6); ABSOLUTE LYMPHOCYTES (AUTO) 2.3 10^3/uL (0.5-4.7); ABSOLUTE MONOCYTES (AUTO) 1.1 10^3/uL (0.1-1.4); ABSOLUTE NEUT (AUTO) 8.5 10^3/uL (1.7-8.2); BASOPHILS % (AUTO) 0.5 % (0-2); HEMATOCRIT 38.5 % (37.9-51.0); HEMOGLOBIN 13.1 g/dL (13.5-17.0); LYMPHOCYTES % (AUTO) 18.9 % (13-45); MEAN CORPUSCULAR HEMOGLOBIN 31.5 pg (27.0-33.4); MEAN CORPUSCULAR HGB CONC 34.1 g/dL (32.0-36.0); MEAN CORPUSCULAR VOLUME 92 fl (80-97); MONOCYTES % (AUTO) 8.8 % (3-13); PLATELET COUNT 381 10^3/uL (150-450); RED BLOOD COUNT 4.17 10^6/uL (4.35-5.55); RED CELL DISTRIBUTION WIDTH 14.3 % (11.5-14.0); SEGMENTED NEUTROPHILS % (AUTO) 70.8 % (42-78); TOTAL CELLS COUNTED % (AUTO) 100 %; WHITE BLOOD COUNT 12.1 10^3/uL (4.0-10.5)
[2018-02-15 15:07] LABS: ALANINE AMINOTRANSFERASE 28 U/L (21-72); ALBUMIN 4.2 g/dL (3.5-5.0); ALKALINE PHOSPHATASE 99 U/L (38-126); ANION GAP 15 (5-19); ASPARTATE AMINO TRANSFERASE 22 U/L (17-59); BILIRUBIN,DIRECT 0.3 mg/dL (0.0-0.4); BILIRUBIN,TOTAL 0.3 mg/dL (0.2-1.3); BLOOD UREA NITROGEN 6 mg/dL (7-20); CALCIUM 9.6 mg/dL (8.4-10.2); CARBON DIOXIDE 26 mmol/L (22-30); CHLORIDE 104 mmol/L (98-107); GLUCOSE 98 mg/dL (75-110); POTASSIUM 4.5 mmol/L (3.6-5.0); SODIUM 145.2 mmol/L (137-145); TOTAL PROTEIN 7.8 g/dL (6.3-8.2); TRIGLYCERIDES 217 mg/dL (<150)
[2018-02-15 15:18] LABS: DIRECT LDL 177 mg/dL (<100)
[2018-02-15 15:20] LABS: VLDL CHOLESTEROL 43.4 mg/dL (10-31)
== END ==
LOC: OD 13:20
PROVIDERS: ATTEND Nurse Practitioner Psychiatric/Mental Health
DX: F25.0 Schizoaffective disorder, bipolar type (principal); Z79.899 Other long term (current) drug therapy
CPT/HCPCS: 36415; 80053; 80061; 80164; 83036; 84443; 85025

== ENCOUNTER 2018-03-18 10:35 | Day surgery (SDC) | payer MEDICAID ==
[~2018-03-18 10:35] MED LIST: PROPOFOL INJ 200 MG/20 ML VIAL IV ONE
[2018-03-18 11:54] VITALS: BP 116/75
--- NOTE | 2018-03-18 12:01 | Operative Report ---
Operative Report DATE OF SURGERY: 03/18/18 Operative Report: The risks, benefits and alternatives of the procedure including risks of bleeding, perforation requiring surgery are explained to the patient in detail and informed consent is obtained. Patient was taken back to the endoscopy suite and placed in the left, lateral decubital position. Timeout was called. Propofol medications administered. A rectal examination is done which did not reveal any masses, tears or fissures. An Olympus videoscope was inserted into the patient's rectum. The scope was then carefully advanced all the way to the cecum. Intubation of the terminal ileum is done. The scope was then sequentially pulled back via the various segments of the colon including the ascending colon, transverse colon, splenic flexure, descending colon and finally into the rectosigmoid portions of the colon. Retroflexion maneuver is performed. Prep is good. Photodocumentation is obtained. The risks benefits and alternatives of the procedure explained to the patient in detail and informed consent is obtained.a GIF Olympus video scope was inserted into the patient's mouth and hypopharynx ,the esophagus is identified intubated and insufflated, the scope was then advanced through the esophagus stomach and duodenum ,retroflexion maneuver is done, the esophagus stomach and first and second portions of the duodenum examined PREOPERATIVE DIAGNOSIS: Change in bowel habits, bilious vomiting POSTOPERATIVE DIAGNOSIS: Severe erosive esophagitis with an esophageal ulcer. Gastritis status post biopsy to check for Helicobacter pylori. Mild terminal ileitis. Small polyp, hyperplastic noted in the sigmoid area status post biopsy OPERATION: Colonoscopy with biopsy. EGD with biopsy SURGEON: JACOB BHAKTA ANESTHESIA: LMAC TISSUE REMOVED OR ALTERED: As noted above. COMPLICATIONS: None. ESTIMATED BLOOD LOSS: None. INTRAOPERATIVE FINDINGS: As noted above. PROCEDURE: Patient tolerated procedure well. No immediate postprocedure complications are noted. Patient discharged in good condition. Discharge date 03/18/2018. Discharge diet: Regular. Discharge activity: Regular. 2-3 week follow-up to discuss findings. Patient is instructed to call the office or proceed to the emergency room should there be any further problems or questions. We will wait on the pathology.
== END 2018-03-18 11:47 | disposition home or self-care (01) ==
LOC: END 10:35
PROVIDERS: ATTEND Internal Medicine Gastroenterology
DX: K20.9 Esophagitis, unspecified (principal); K22.10 Ulcer of esophagus without bleeding; K52.9 Noninfective gastroenteritis and colitis, unspecified; K29.50 Unspecified chronic gastritis without bleeding; K63.5 Polyp of colon; F17.210 Nicotine dependence, cigarettes, uncomplicated; F20.9 Schizophrenia, unspecified; F41.9 Anxiety disorder, unspecified; F32.9 Major depressive disorder, single episode, unspecified; Z79.899 Other long term (current) drug therapy
CPT/HCPCS: 43239; 45380; 88305 ×2; J2704; 813

== ENCOUNTER 2018-10-03 19:39 | Emergency (ER) | payer MEDICAID ==
--- NOTE | 2018-10-03 21:07 | RADIOLOGY REPORT (SQ) ---
EXAM DESCRIPTION: XR KNEE 4 OR MORE VIEWS COMPLETED DATE/TME: 10/03/2018 20:44 CLINICAL HISTORY: 28 years, Male, twisted Findings: Bony alignment is anatomic. No fracture or dislocation. No significant suprapatellar joint effusion. Mild anterior prepatellar soft tissue swelling. IMPRESSION: No fracture.
--- NOTE | 2018-10-03 21:25 | ER Document Report ---
ED Extremity Problem, Lower - General Chief Complaint: Knee Injury Stated Complaint: LEFT KNEE INJURY Time Seen by Provider: 10/03/18 20:30 Mode of Arrival: Ambulatory Information source: Patient Notes: Patient is a 20-year-old male comes emergency room complaint of left knee pain. Patient states that yesterday he was picking up his aunt's dog and he turned to put it in the car and his upper leg twisted in the lower leg did not a felt a pop in his knee. He complains of pain on the lateral side of the knee and an inferior portion of the knee. He denies any other injuries he did not fall with this it is gotten aggressively more sore over the course of time. He is ambulatory on it but it hurts. He denies any other medical problems but states he has a long past psychiatric. He is currently on medications for psychiatric purposes. TRAVEL OUTSIDE OF THE [place] IN LAST 30 DAYS: No - HPI Patient complains to provider of: Injury, Pain, Swelling Location: Knee Occurred: Yesterday Where: Home Onset/Duration: Sudden, Persistent Quality of pain: Throbbing Severity: Moderate Pain Level: 3 Context: Twisted Recent injury: Yes Associated symptoms: Cocke a pop Exacerbated by: Movement, Walking Relieved by: Ice, Rest - Related Data Allergies/Adverse Reactions: No Known Allergies Allergy (Verified 03/18/18 10:47) Past Medical History - Social History Smoking Status: Current Every Day Smoker Cigarette use (# per day): Yes - Half-pack a day. Chew tobacco use (# tins/day): No Smoking Education Provided: Yes Frequency of alcohol use: None Drug Abuse: None Lives with: Spouse/Significant other Family History: Reviewed & Not Pertinent, COPD, DM, Malignancy Patient has suicidal ideation: No Patient has homicidal ideation: No - Past Medical History Cardiac Medical History: Denies: Hx Coronary Artery Disease, Hx Heart Attack, Hx Hypertension Pulmonary Medical History: Reports: Hx Asthma Denies: Hx Bronchitis, Hx COPD, Hx Pneumonia Neurological Medical History: Denies: Hx Cerebrovascular Accident, Hx Seizures Renal/ Medical History: Denies: Hx Peritoneal Dialysis Musculoskeletal Medical History: Denies Hx Arthritis, Reports Hx Musculoskeletal Trauma Psychiatric Medical History: Reports: Hx Bipolar Disorder, Hx Depression, Hx Schizoaffective Disorder, Hx Schizophrenia - effective - Immunizations Hx Diphtheria, Pertussis, Tetanus Vaccination: Yes Review of Systems - Review of Systems Constitutional: No symptoms reported EENT: No symptoms reported Cardiovascular: No symptoms reported Respiratory: No symptoms reported Gastrointestinal: No symptoms reported Genitourinary: No symptoms reported Male Genitourinary: No symptoms reported Musculoskeletal: See HPI, Joint pain, Joint swelling Skin: No symptoms reported Hematologic/Lymphatic: No symptoms reported Neurological/Psychological: No symptoms reported -: Yes All other systems reviewed and negative Physical Exam - Vital signs Vitals: Temp Pulse Resp BP Pulse Ox 98.5 F 94 16 126/80 H 98 10/03/18 20:04 10/03/18 20:04 10/03/18 20:04 10/03/18 20:04 10/03/18 20:04 Interpretation: Hypertensive - Notes Notes: PHYSICAL EXAMINATION: GENERAL: Patient is a well-nourished well-developed 20-year-old male who is in no apparent distress on physical exam tonight. He does appear to be somewhat uncomfortable. HEAD: Atraumatic, normocephalic. NECK: Normal range of motion, supple without lymphadenopathy LUNGS: Breath sounds clear to auscultation bilaterally and equal. No wheezes rales or rhonchi. HEART: Regular rate and rhythm without murmurs Musculoskeletal: Examination patient's area of concern is his left knee. In comparison to the right is just slightly a little bit of swelling noted. Patient has good popliteal pulse good distal dorsalis pedal pulse he has good flexion-extension of the ankle as well as rotation. He has good cap refill. On palpation patient has tenderness on the lateral aspect of the knee just inferior to the kneecap. And also into the anterior portion of the knee the lateral side inferiorly. There is no laxity noted. NEUROLOGICAL: Cranial nerves grossly intact. Normal speech, normal gait. Normal sensory, motor exams PSYCH: Normal mood, normal affect. SKIN: Warm, Dry, normal turgor, no rashes or lesions noted. Course - Re-evaluation Re-evalutation: 10/03/18 21:33 Radiologist reads the x-ray as normal with the exception of finding some soft tissue swelling in the inferior portion of the patella. So tonight of placing patient in a knee immobilizer and crutches and have him nonweightbearing for 3 days after 3 days he will attempt to walk if it still painful he will follow-up with orthopedist. I will give the name of our group is [employer] [facility]. He does have a primary care physician and I have informed him he may want to check with him first get an MRI if it still painful and then see orthopedist. He is also going to ice it down to take ibuprofen for any discomfort or pain. - Vital Signs Vital signs: Temp Pulse Resp BP Pulse Ox 98.5 F 94 16 126/80 H 98 10/03/18 20:04 10/03/18 20:04 10/03/18 20:04 10/03/18 20:04 10/03/18 20:04 Procedures - Immobilization Left Knee Time completed: 21:34 Pre-Proc Neuro Vasc Exam: Normal Immobilizer type: Knee immobilizer Performed by: PCT Post-Proc Neuro Vasc Exam: Normal, Unchanged from pre-exam Alignment checked and good: Yes Discharge - Discharge Clinical Impression: Internal derangement of left knee Condition: Stable Disposition: HOME, SELF-CARE Instructions: Use of Crutches ([facility]), Ice & Elevation ([facility]), Suspected Internal Knee Injury ([facility]), Knee Immobilizing Splint ([facility]), Sprained Knee ([facility]) Additional Instructions: Knee Immobilizing Splint The knee immobilizing splint will protect the injury while healing begins. This type of splint does not allow the knee to bend at all. No running or sports will be possible. If the splint allows painfree walking, it's giving adequate protection. If there is still significant pain, crutches may be needed as well. Don't do anything that hurts. Adjusted the splint, if necessary. The stiffeners on the sides are attached with Velcro, so they can be easily moved to adjust for thigh and calf size. If you need help with these adjustments, come back. You will lose muscle strength in the thigh while using this splint. The do ctor will advise you if it's safe to do isometric knee exercises while you use it. As we discussed I believe that you may have torn a meniscus or ligament in her knee on the outside and possibly in the lower portion below the kneecap. You got good range of motion with the knee some tenderness with touching the area that I just described. Leave the immobilizer on even when you sleep. You may l oosen it up slightly so that is not strangulated in the and when you get up to walk around tying it back. Ibuprofen for your pain discomfort as we discussed. Ice to the area 3 times a day. You may open it up and put the ice directly on the area. This you should do if you have a cloth or thin towel between the ice bag in your skin. Also as we discussed nonweightbearing for 3 days after 3 days you can attempt to walk on it if it is still painful you will need to see your primary care physician and possibly have an MRI performed or see orthopedist to see if they feel that you need it as well. Should you have any concerns or problems between now and then return to ER for recheck. Referrals: SAM PRICE NP [Primary Care Provider] - Follow up as needed DARYL DELONG MD [ACTIVE STAFF] - Follow up as needed
[2018-10-03 22:00] VITALS: BP 140/88
== END 2018-10-03 22:18 | disposition home or self-care (01) ==
LOC: ER 19:39
DX: M23.8X2 Other internal derangements of left knee (principal); F17.210 Nicotine dependence, cigarettes, uncomplicated
CPT/HCPCS: 99283; 73564; L1830

== ENCOUNTER 2018-11-13 08:44 | Day surgery (SDC) | payer MEDICAID ==
[2018-11-13] MEDS ORDERED: ALBUTEROL SULFATE 0.083% NEB 2.5 MG/3 ML AMPUL NEB ONE (09:30)
[2018-11-13] MEDS ORDERED: DIPHENHYDRAMINE HCL 50 MG/ML VIAL IV PRN (10:38)
[2018-11-13] MEDS ORDERED: PROPOFOL INJ 200 MG/20 ML VIAL IV ONE ×2 (10:56→11:18)
[2018-11-13] MEDS ORDERED: ONDANSETRON HCL INJ/PF 4 MG/2 ML SDV ONE (11:18)
[2018-11-13] MEDS ORDERED: LIDOCAINE 2% INJ-PF (20 MG/ML) 10 ML AMPUL ONE (11:18)
[2018-11-13 11:56] VITALS: BP 131/80
--- NOTE | 2018-11-13 12:09 | Operative Report ---
Operative Report DATE OF SURGERY: 11/13/18 Operative Report: The risks benefits and alternatives of the procedure explained to the patient in detail and informed consent is obtained.A GIF Olympus video scope was inserted into the patient's mouth and hypopharynx, the esophagus is identified intubated and insufflated, the scope was then advanced through the esophagus stomach and duodenum, retroflexion maneuver is done the esophagus stomach and first and second portions of the duodenum examined. PREOPERATIVE DIAGNOSIS: Nausea vomiting, hematemesis POSTOPERATIVE DIAGNOSIS: Gastritis status post biopsy rule out Helicobacter pylori OPERATION: EGD with biopsy SURGEON: JACOB BHAKTA ANESTHESIA: LMAC TISSUE REMOVED OR ALTERED: As noted above. COMPLICATIONS: None. ESTIMATED BLOOD LOSS: None. INTRAOPERATIVE FINDINGS: As noted above. PROCEDURE: Patient tolerated the procedure well. No immediate postprocedure complications are noted. Patient discharged in good condition. Discharge date 11/13/2018. Discharge diet: Regular. Discharge activity: Regular. 2-3-week follow-up to discuss findings. Patient is instructed to call the office or proceed to the emergency room should there be any further problems or questions. I will wait to pathology.
== END 2018-11-13 12:14 | disposition home or self-care (01) ==
LOC: OROUT 08:44
PROVIDERS: ATTEND Internal Medicine Gastroenterology
DX: K29.50 Unspecified chronic gastritis without bleeding (principal); K92.0 Hematemesis; K21.0 Gastro-esophageal reflux disease with esophagitis; Z86.010 Personal history of colon polyps; F17.210 Nicotine dependence, cigarettes, uncomplicated; Z79.899 Other long term (current) drug therapy
CPT/HCPCS: 43239; 88342 ×2; 88305 ×2; 94640; J2704; 731; J2405; J3490

== ENCOUNTER → 2018-11-25 | Outpatient (CLI) | payer MEDICAID ==
--- NOTE | 2018-11-25 12:36 | RADIOLOGY REPORT (SQ) ---
EXAM DESCRIPTION: U/S ABDOMEN LIMITED W/O DOP COMPLETED DATE/TIME: 11/25/2018 12:00 pm REASON FOR STUDY: RUQ PAIN (R10.11), NAUSEA WITH VOMITING (R11.2) R10.11 RIGHT UPPER QUADRANT PAIN COMPARISON: None. TECHNIQUE: Dynamic and static grayscale images acquired of the abdomen and recorded on PACS. Additio nal selected color Doppler and spectral images recorded. LIMITATIONS: None. FINDINGS: PANCREAS: No masses. Visualized pancreatic duct normal caliber. LIVER: Fatty liver. The liver measures 14.9 cm in length, normal size. LIVER VASCULATURE: Normal directional flow of the main portal vein and hepatic veins. GALLBLADDER: No stones. The gallbladder wall measures 2.9 mm, normal wall thickness. No pericholecys tic fluid. ULTRASOUND-DETECTED PALMER'S SIGN: Negative. INTRAHEPATIC DUCTS AND COMMON DUCT: CBD measures 3.5 mm in diameter, normal. The intrahepatic ducts normal caliber. No filling defects. INFERIOR VENA CAVA: Normal flow. AORTA: No aneurysm. RIGHT KIDNEY: The right kidney measures 11.3 cm in length, normal size. Normal echogenicity. No trevon id or suspicious masses. No hydronephrosis. No calcifications. PERITONEAL AND RIGHT PLEURAL SPACE: No ascites or effusions. OTHER: No other significant findings. IMPRESSION: 1. Fatty liver. 2. Examination is otherwise unremarkable sonographically. TECHNICAL DOCUMENTATION: JOB ID: [id number] [employer]- All Rights Reserved Reading location - IP/workstation name: [email or web address]
--- NOTE | 2018-11-25 16:20 | RADIOLOGY REPORT (SQ) ---
EXAM DESCRIPTION: NM HIDA SCAN WITH CCK COMPLETED DATE/TIME: 11/25/2018 3:29 pm REASON FOR STUDY: RUQ PAIN (R10.11), NAUSEA WITH VOMITING (R11.2) R10.11 RIGHT UPPER QUADRANT PAIN COMPARISON: None. RADIONUCLIDE AND DOSE: DOSAGE RADIONUCLIDE: 5.5 millicuries Tc99m Mebrofenin. DOSAGE CCK: 5.0 micrograms. DOSAGE MORPHINE: Not required. The route of agent administration: Intravenous TECHNIQUE: Serial imaging right upper quadrant up to 60 minutes following injection of radionuclide. CCK injected after gallbladder visualized. LIMITATIONS: None. FINDINGS: LIVER: Normal visualization without areas of photopenia. INTRA AND EXTRAHEPATIC BILE DUCTS: Normal accumulation of activity. GALLBLADDER: Normal visualization. Calculated Ejection Fraction of 32%. Below the normal value of 35 % or greater. PHYSICAL RESPONSE: Patients presenting complaint was reproduced. OTHER: No other significant finding. IMPRESSION: LOW GALLBLADDER EJECTION FRACTION. EVIDENCE FOR BILIARY DYSKINESIS. NO CYSTIC OR COMMO N DUCT OBSTRUCTION. TECHNICAL DOCUMENTATION: JOB ID: [id number] [employer]- All Rights Reserved Reading location - IP/workstation name: [email or web address]
== END ==
LOC: RAD 10:57
PROVIDERS: ATTEND Internal Medicine Gastroenterology
DX: K76.0 Fatty (change of) liver, not elsewhere classified (principal); R10.11 Right upper quadrant pain; R11.2 Nausea with vomiting, unspecified
CPT/HCPCS: 76705; 78227; J2805; A9537; Q9969

== ENCOUNTER 2019-01-03 10:36 | Day surgery (SDC) | payer MEDICAID ==
[2018-12-27 09:43] LABS: HEMATOCRIT 30.3 % (37.9-51.0); HEMOGLOBIN 9.6 g/dL (13.5-17.0); MEAN CORPUSCULAR HEMOGLOBIN 23.3 pg (27.0-33.4); MEAN CORPUSCULAR HGB CONC 31.7 g/dL (32.0-36.0); MEAN CORPUSCULAR VOLUME 74 fl (80-97); PLATELET COUNT 371 10^3/uL (150-450); RED BLOOD COUNT 4.12 10^6/uL (4.35-5.55); RED CELL DISTRIBUTION WIDTH 18.8 % (11.5-14.0); WHITE BLOOD COUNT 9.4 10^3/uL (4.0-10.5)
[2018-12-27 09:59] LABS: ALANINE AMINOTRANSFERASE 21 U/L (21-72); ALBUMIN 4.1 g/dL (3.5-5.0); ALKALINE PHOSPHATASE 89 U/L (38-126); ANION GAP 13 (5-19); ASPARTATE AMINO TRANSFERASE 15 U/L (17-59); BILIRUBIN,DIRECT 0.2 mg/dL (0.0-0.4); BILIRUBIN,TOTAL 0.2 mg/dL (0.2-1.3); BLOOD UREA NITROGEN 5 mg/dL (7-20); CALCIUM 9.3 mg/dL (8.4-10.2); CARBON DIOXIDE 21 mmol/L (22-30); CHLORIDE 110 mmol/L (98-107); GLUCOSE 100 mg/dL (75-110); POTASSIUM 3.9 mmol/L (3.6-5.0); SODIUM 143.6 mmol/L (137-145); TOTAL PROTEIN 6.6 g/dL (6.3-8.2)
[~2019-01-03 10:36] MED LIST changes: +BUPIVACAINE HCL 0.25 % INJ/PF (2.5 MG/1 ML) 30 ML VIAL ONE; +CEFAZOLIN 1 GM/D5W RTU 1 GM/50 ML RTUPB IV ONE; +CEFOXITIN SODIUM 2 GM in DEXTROSE 5%-WATER 100 ML IV PRN; +LACTATED RINGERS 1000 ML IV PRN; +LIDOCAINE 0.5% INJ-PF (5 MG/ML) 50 ML SDV SUBCUT PRN; -PROPOFOL INJ 200 MG/20 ML VIAL IV ONE
[2019-01-03] MEDS ORDERED: SUGAMMADEX SODIUM 200 MG/2 ML SDV IV ONE (10:43)
[2019-01-03] MEDS ORDERED: MIDAZOLAM 2 MG/2 ML INJ ONE (10:43)
[2019-01-03] MEDS ORDERED: FENTANYL CITRATE INJ/PF 100 MCG/2 ML AMPUL ONE (10:43)
[2019-01-03] MEDS ORDERED: ONDANSETRON HCL INJ/PF 4 MG/2 ML SDV ONE (10:43)
[2019-01-03] MEDS ORDERED: DEXAMETHASONE SOD PHOSPHATE INJ 4 MG/1 ML VIAL ONE (10:43)
[2019-01-03] MEDS ORDERED: PROPOFOL INJ 200 MG/20 ML VIAL IV ONE (10:44)
[2019-01-03] MEDS ORDERED: ACETAMINOPHEN 1,000 MG/100 ML RTUPB IV ONE (10:44)
[2019-01-03] MEDS ORDERED: FENTANYL CITRATE INJ/PF 100 MCG/2 ML AMPUL IV PRN ×3 (13:38)
[2019-01-03] MEDS ORDERED: PROMETHAZINE HCL INJ 25 MG/1 ML VIAL IV PRN ×2 (13:38)
[2019-01-03] MEDS ORDERED: DIPHENHYDRAMINE HCL 50 MG/ML VIAL IV PRN (13:38)
[2019-01-03] MEDS ORDERED: MEPERIDINE HCL/PF INJ 25 MG/1 ML DISP.SYRIN IV PRN (13:38)
[2019-01-03] MEDS ORDERED: MORPHINE SULFATE 10 MG/ML INJ IV PRN (13:38)
[2019-01-03] MEDS ORDERED: ONDANSETRON HCL INJ/PF 4 MG/2 ML SDV IV PRN (13:38)
--- NOTE | 2019-01-03 14:18 | Discharge Summary ---
Discharge Summary (SDC) - Discharge Final Diagnosis: Biliary dyskinesia Date of Surgery: 01/03/19 Discharge Date: 01/03/19 Condition: Stable Treatment or Instructions: Discharge home. Diet as tolerated. Activity: No lifting more than 10 pounds x 2 weeks. Follow-up with me in 7-10 days. [place] 10/3 2 5 mg p.o. every 6 hours as needed for pain. Okay to shower in 48 hours. No tub baths or swimming pools times 2 weeks. Referrals: SOREN JEREZ FNP-C [Primary Care Provider] - Discharge Diet: As Tolerated Respiratory Treatments at Home: Deep Breathing/Coughing, Incentive Spirometer Discharge Activity: No Lifting Over 10 Pounds Home Care Assistance: None Needed Report the Following to Your Physician Immediately: Shortness of Breath, Nausea, Vomiting, Increase in Pain, Fever over 101 Degrees, Unusual Bleeding, Redness
--- NOTE | 2019-01-03 14:24 | Operative Report ---
Nonrecallable Operative Report DATE OF SURGERY: 01/03/19 PREOPERATIVE DIAGNOSIS: Biliary dyskinesia POSTOPERATIVE DIAGNOSIS: Same OPERATION: Laparoscopic cholecystectomy SURGEON: OLAMIDE WHITT QUALITY ASSURANCE ASSESSOR: NABILA VALENCIA ANESTHESIA: GA TISSUE REMOVED OR ALTERED: Gallbladder COMPLICATIONS: None apparent ESTIMATED BLOOD LOSS: Minimal PROCEDURE: Drains/implants: None. Procedure in detail: After informed consent was obtained, the patient was brought to the operating room and laid in the supine position. The area of the abdomen was prepped and draped in a normal sterile fashion. A supraumbilical incision was created with a 15 blade scalpel. Dissection was carried through the subcutaneous tissue using sharp and blunt dissection. The cicatrix was identified, grasped with a Umm clamp, and retracted upwards. The linea alba fascia was incised sharply, the abdomen was entered sharply. The balloon trocar was inserted, and pneumoperitoneum was achieved. A subxiphoid 5 mm port was placed under direct laparoscopic visualization. 2 more 5 mm ports were placed in the right upper quadrant in similar fashion. Atraumatic graspers were placed through the 5 mm ports. The gallbladder was retracted cephalad and laterally. Dissection was begun in the triangle of Calot. The cystic duct and cystic artery were fully visualized and skeletonized, seeing the liver through the triangle. Once the critical view of safety was obtained, the cystic duct and cystic artery were clipped and cut with laparoscopic instruments. The gallbladder was removed from the liver using Bovie cautery. Once this was completed, the gallbladder was placed into an Endo Catch bag and pulled out through the umbilicus. The camera was reinserted, and the hilum was inspected. The hilum was found to be free of any leakage of blood or bile. Once this was confirmed, the 5 mm trochars were removed under direct laparoscopic visualization. The supraumbilical trocar was removed, and pneumoperitoneum was relieved. The supraumbilical fascia was closed using 0 Vicryl suture in [id number] fashion. The overlying skin was closed using 4-0 Vicryl Rapide suture in subcuticular fashion. Dressings were placed, and the procedure was concluded. All sponge, instrument, and needle counts were correct x2. Condition: Stable. Nabila Valencia PA-C was scrubbed and present the entirety of the procedure. She assisted with all portions of the procedure including placement of the trochars, manipulation of the gallbladder, removal of the gallbladder, closure of the fascia, and closure of the skin.
[2019-01-03] MEDS ORDERED: HYDROCODONE/ACETAMINOPHEN 10-325 MG TABLET ONE (14:55)
[2019-01-03 15:57] VITALS: BP 137/97
== END 2019-01-03 15:50 | disposition home or self-care (01) ==
LOC: OROUT 10:36
PROVIDERS: ATTEND Surgery
DX: K81.9 Cholecystitis, unspecified (principal); D64.9 Anemia, unspecified; F31.30 Bipolar disorder, current episode depressed, mild or moderate severity, unspecified; F20.9 Schizophrenia, unspecified; F41.9 Anxiety disorder, unspecified; F17.210 Nicotine dependence, cigarettes, uncomplicated; Z79.899 Other long term (current) drug therapy; F12.90 Cannabis use, unspecified, uncomplicated
CPT/HCPCS: 36415; 85027; 80053; 88304 ×2; 47562; J2250; J0690; J1100; J0694; J3010; J2405; S0020; J2704; J0131; J3490; 790

== ENCOUNTER 2019-07-23 18:13 | Emergency (ER) | payer MEDICAID ==
[2019-07-23] MEDS ORDERED: ACETAMINOPHEN 325 MG TABLET PO ONE (18:55)
--- NOTE | 2019-07-23 18:58 | ER Document Report ---
ED Medical Screen (RME) - General Chief Complaint: Foot Pain Stated Complaint: FALL/FOOT PAIN Time Seen by Provider: 07/23/19 18:52 Primary Care Provider: SOREN JEREZ FNP-C [Primary Care Provider] - Follow up as needed Mode of Arrival: Ambulatory Information source: Patient Notes: 29-year-old male presented to ED for complaint of pain to the left foot the top front of the foot and the second third and fourth toe. He states he went outside and fell injuring his foot. He is alert oriented respirations regular and unlabored. He states he does have a history of panic disorder schizoaffective disassociative disorder and anemia. He does smoke 1/2 pack drink occasionally smokes pot and is disabled living with his family. He states he has had a gallbladder removal in the past. Patient is alert and oriented walk alone with a even steady gait. I have greeted and performed a rapid initial assessment of this patient. A comprehensive ED assessment and evaluation of the patient, analysis of test results and completion of medical decision making process will be conducted by an additional ED providers. TRAVEL OUTSIDE OF THE [place] IN LAST 30 DAYS: No - Related Data Allergies/Adverse Reactions: No Known Allergies Allergy (Verified 07/23/19 18:51) Home Medications: olanzapine, trentilix, depakote, ariprizole, topamax, buspar, xanax, dexilant, fiber Past Medical History - Social History Chew tobacco use (# tins/day): No Frequency of alcohol use: Occasional Drug Abuse: Marijuana - Past Medical History Cardiac Medical History: Denies: Hx Coronary Artery Disease, Hx Heart Attack, Hx Hypertension Pulmonary Medical History: Reports: Hx Asthma - A CHILD, Hx Bronchitis Denies: Hx COPD, Hx Pneumonia Neurological Medical History: Denies: Hx Cerebrovascular Accident, Hx Seizures Renal/ Medical History: Denies: Hx Peritoneal Dialysis Musculoskeltal Medical History: Denies Hx Arthritis, Reports Hx Musculoskeletal Trauma Psychiatric Medical History: Reports: Hx Bipolar Disorder, Hx Depression, Hx Schizoaffective Disorder, Hx Schizophrenia - effective - Immunizations Hx Diphtheria, Pertussis, Tetanus Vaccination: Yes Physical Exam - Vital signs Vitals: Temp Pulse Resp BP Pulse Ox 97.9 F 90 20 127/82 H 100 07/23/19 18:18 07/23/19 18:18 07/23/19 18:18 07/23/19 18:18 07/23/19 18:18 Course - Vital Signs Vital signs: Temp Pulse Resp BP Pulse Ox 97.9 F 90 20 127/82 H 100 07/23/19 18:18 07/23/19 18:18 07/23/19 18:18 07/23/19 18:18 07/23/19 18:18 Doctor's Discharge - Discharge Referrals: SOREN JEREZ, LABORATORY DEVELOPMENT TECHNICIAN-C [Primary Care Provider] - Follow up as needed
--- NOTE | 2019-07-23 19:12 | RADIOLOGY REPORT (SQ) ---
EXAM DESCRIPTION: FOOT LEFT COMPLETE COMPLETED DATE/TIME: 07/23/2019 7:04 pm REASON FOR STUDY: Pain to the left foot and 2, 3 , 4th toes COMPARISON: None. NUMBER OF VIEWS: Three views. TECHNIQUE: AP, lateral and oblique radiographic images acquired of the left foot. LIMITATIONS: None. FINDINGS: MINERALIZATION: Normal. BONES: No acute fracture or dislocation. No worrisome bone lesions. JOINTS: No effusions. SOFT TISSUES: There is soft tissue swelling dorsally. OTHER: No other significant finding. IMPRESSION: Soft tissue swelling dorsally. No fracture. TECHNICAL DOCUMENTATION: JOB ID: [id number] [employer]- All Rights Reserved Reading location - IP/workstation name: [email or web address]
--- NOTE | 2019-07-23 19:14 | ER Document Report ---
ED Extremity Problem, Lower - General Chief Complaint: Foot Pain Stated Complaint: FALL/FOOT PAIN Time Seen by Provider: 07/23/19 18:52 Primary Care Provider: SOREN JEREZ FNP-C [Primary Care Provider] - Follow up as needed Mode of Arrival: Ambulatory TRAVEL OUTSIDE OF THE [place] IN LAST 30 DAYS: No - HPI Notes: 29-year-old male to the emergency department with complaints of left foot pain that began this afternoon. He states that he was stepping around his mom and sibling when he fell off of a stair. He states that he twisted his left foot up and under him. He states that he has a little abrasion to the foot. He states that he is up-to-date on his tetanus. He denies any other injuries. States it hurts to walk on the foot and it is mildly swollen. Denies any other complaints. - Related Data Allergies/Adverse Reactions: No Known Allergies Allergy (Verified 07/23/19 18:51) Home Medications: olanzapine, trentilix, depakote, ariprizole, topamax, buspar, xanax, dexilant, fiber Past Medical History - General Information source: Patient - Social History Smoking Status: Current Every Day Smoker Chew tobacco use (# tins/day): No Frequency of alcohol use: Occasional Drug Abuse: Marijuana Family History: Reviewed & Not Pertinent, COPD, DM, Malignancy Patient has suicidal ideation: No Patient has homicidal ideation: No - Past Medical History Cardiac Medical History: Denies: Hx Coronary Artery Disease, Hx Heart Attack, Hx Hypertension Pulmonary Medical History: Reports: Hx Asthma - A CHILD, Hx Bronchitis Denies: Hx COPD, Hx Pneumonia Neurological Medical History: Denies: Hx Cerebrovascular Accident, Hx Seizures Renal/ Medical History: Denies: Hx Peritoneal Dialysis Musculoskeletal Medical History: Denies Hx Arthritis, Reports Hx Musculoskeletal Trauma Psychiatric Medical History: Reports: Hx Bipolar Disorder, Hx Depression, Hx S chizoaffective Disorder, Hx Schizophrenia - effective - Immunizations Hx Diphtheria, Pertussis, Tetanus Vaccination: Yes Review of Systems - Review of Systems Constitutional: No symptoms reported. denies: Chills, Fever EENT: No symptoms reported Cardiovascular: No symptoms reported. denies: Chest pain, Palpitations, Dyspnea, Syncope, Dizziness, Lightheaded Respiratory: denies: Cough, Short of breath, Stridor Gastrointestinal: denies: Abdominal pain, Diarrhea, Nausea, Vomiting Genitourinary: denies: Burning, Frequency Musculoskeletal: See HPI, Joint pain - Left foot pain and swelling., Joint swelling Skin: See HPI, Other - Abrasion to the left foot. Neurological/Psychological: No symptoms reported -: Yes All other systems reviewed and negative Physical Exam - Vital signs Vitals: Temp Pulse Resp BP Pulse Ox 97.9 F 90 20 127/82 H 100 07/23/19 18:18 07/23/19 18:18 07/23/19 18:18 07/23/19 18:18 07/23/19 18:18 Interpretation: Normal - General General appearance: Appears well, Alert In distress: None - HEENT Head: Normocephalic, Atraumatic Eyes: Normal Pupils: PERRL - Respiratory Respiratory status: No respiratory distress Chest status: Nontender Breath sounds: Normal Chest palpation: Normal - Cardiovascular Rhythm: Regular Heart sounds: Normal auscultation Murmur: No - Abdominal Inspection: Normal Distension: No distension Bowel sounds: Normal Tenderness: Nontender Organomegaly: No organomegaly - Extremities Foot: Tender - To the dorsum of the left foot there is edema and tenderness to palpation. There is no gross deformity. There is a small abrasion between the third and second toe with bleeding controlled. There is no laceration that needs repair. Patient is able to ambulate on the foot. He has a mild limp with that. He has full range of motion in dorsi and plantar flexion against re sistance with 5 out of 5 strength. He is nontender to palpation over bilateral ankles, bilateral knees, bilateral hips. Cap refill is less than 2 seconds. DP pulses are intact and equal., Edema - Neurological Neuro grossly intact: Yes Cognition: Normal Orientation: AAOx4 Ware Coma Scale Eye Opening: Spontaneous Jeanne Coma Scale Verbal: Oriented Ware Coma Scale Motor: Obeys Commands Jeanne Coma Scale Total: 15 Speech: Normal Motor strength normal: LUE, RUE, LLE, RLE Sensory: Normal - Psychological Associated symptoms: Normal affect, Normal mood - Skin Skin Temperature: Warm Skin Moisture: Dry Skin Color: Normal Skin irregularity: other - There is a small abrasion to the left third toe with bleeding controlled. Course - Re-evaluation Re-evalutation: 07/23/19 20:08 Impression: Left foot sprain. We will go ahead and Giles wrap the foot and placed in postop shoe. Will start on Motrin. Have encouraged elevation, and ice. Patient agrees with the plan. Will discharge home. Have patient follow with primary care. - Vital Signs Vital signs: Temp Pulse Resp BP Pulse Ox 97.9 F 90 20 127/82 H 100 07/23/19 18:18 07/23/19 18:18 07/23/19 18:18 07/23/19 18:18 07/23/19 18:18 - Diagnostic Test Radiology reviewed: Image reviewed, Reports reviewed Procedures - Immobilization Left Foot Pre-Proc Neuro Vasc Exam: Normal Immobilizer type: Giles wrap, Post-op shoe Performed by: PCT Post-Proc Neuro Vasc Exam: Normal Alignment checked and good: Yes Discharge - Discharge Clinical Impression: Fall Qualifiers: Encounter type: initial encounter Qualified Code(s): W19.XXXA - Unspecified fall, initial encounter Foot sprain Qualifiers: Encounter type: initial encounter Laterality: left Qualified Code(s): S93.602A - Unspecified sprain of left foot, initial encounter Condition: Stable Disposition: HOME, SELF-CARE Instructions: Ice Packs ([facility]), Sprain ([facility]) Additional Instructions: SPRAIN: Your injury is a sprain. A sprain results from stretching or tearing of the ligaments, usually from a twisting injury. The ligaments will require time and protection in order to heal properly. Many sprains are quite disabling and should be taken seriously. The usual initial treatment of sprains is cold packs, elevation, and rest of the injured area. Your physician has assessed the seriousness of your ligament injury, and has outlined a treatment plan. Understand that this treatment may change, depending on how you progress. If a re-examination was recommended, it is important that you follow up as instructed. Call the doctor any time if there is severe pain, numbness, or loss of function in the injured area. GILES WRAP: A compression dressing (giles wrap) has been placed. This helps hold the area still. It limits swelling and internal bleeding. The wrap should be comfortably snug -- not tight. You should feel a sense of pressure, but not severe pain under the wrap. Unless the physician tells you otherwise, you can adjust the wrap for comfort. If the wrap causes symptoms suggesting it's too tight -- uncomfortable pressure, swelling or discoloration beyond the wrap, numbness, or severe pain -- you must loosen the wrap. If these symptoms don't resolve promptly, return for re-evaluation. SPLINT PRECAUTIONS: A splint has been placed. This will protect the area while healing begins. Your problem does NOT normally require a cast. It MUST, however, be held still! Keep the splint on ALL THE TIME until instructed to remove it by the doctor. As you begin to use the area, be careful. You shouldn't do anything which causes discomfort -- you may disturb the injury even with the splint in place. After the initial period of rest and elevation, if splint does not prevent pain when you move, come back. You may require placement of a different splint, or a cast. If there is unexpected severe pain, or numbness, discoloration, or swelling beyond the splint, you should return at once. If you feel that the splint has broken or become loose, come back. ICE & ELEVATION: Apply ice packs frequently against the painful area. Many different schedules are recommended, such as "20 minutes on, 20 minutes off" or "one hour ice, two hours rest." If you need to work, you may need to go longer between ice treatments. You should plan to have the area ice packed AT LEAST one-fourth of the time. The ice should be applied over the wrap, tape, or splint, or over a layer of cloth -- not directly against the skin. Some ice bags have a built-in cloth and can be put directly on the skin. Your injured part should be elevated as much as possible over the next 48 hours. Try to keep the injury above the level of the heart. Avoid use of the injured area. Elevation and rest will decrease the swelling. FOLLOW-UP CARE: If you have been referred to a physician for follow-up care, call the physicians office for an appointment as you were instructed or within the next two days. If you experience worsening or a significant change in your symptoms, notify the physician immediately or return to the Emergency Department at any time for re-evaluation. Prescriptions: Ibuprofen [Motrin 800 mg Tablet] 800 mg PO Q8H PRN #30 tab PRN Reason: Forms: Return to Work Referrals: GILBERT,STORMY, CERTIFIED REGISTERED NURSE PRACTITIONER-C [Primary Care Provider] - Follow up as needed
[2019-07-23 20:44] VITALS: BP 123/77
== END 2019-07-23 20:45 | disposition home or self-care (01) ==
LOC: ER 18:13
DX: S93.602A Unspecified sprain of left foot, initial encounter (principal); M79.672 Pain in left foot; W10.9XXA Fall (on) (from) unspecified stairs and steps, initial encounter; F17.200 Nicotine dependence, unspecified, uncomplicated; J45.909 Unspecified asthma, uncomplicated
CPT/HCPCS: 73630; J3490; 99283

== ENCOUNTER 2019-10-22 15:53 | Emergency (ER) | payer MEDICAID ==
[2019-10-22 16:17] VITALS: BP 126/67
== END 2019-10-22 18:13 | disposition left against medical advice (07) ==
LOC: ER 15:53
DX: Z53.21 Procedure and treatment not carried out due to patient leaving prior to being seen by health care provider (principal); R10.9 Unspecified abdominal pain

== ENCOUNTER → 2019-11-04 | Outpatient (CLI) | payer MEDICAID ==
--- NOTE | 2019-11-04 15:40 | RADIOLOGY REPORT (SQ) ---
EXAM DESCRIPTION: SHOULDER LEFT 2 OR MORE VIEWS COMPLETED DATE/TIME: 11/04/2019 2:27 pm REASON FOR STUDY: UNSP INJURY OF LEFT SHOULDER AND UPPER ARM, INIT ENCNTR S49.92XA UNSP INJURY OF L EFT SHOULDER AND UPPER ARM, INIT EN COMPARISON: None. NUMBER OF VIEWS: Three views. TECHNIQUE: Internal rotation, external rotation, and Y view images acquired of the left shoulder. LIMITATIONS: None. FINDINGS: MINERALIZATION: Normal. BONES: No acute fracture. No worrisome bone lesions. JOINTS: No dislocation. VISUALIZED LUNGS AND RIBS: No pneumothorax. No rib fracture. SOFT TISSUES: No radiopaque foreign body. OTHER: No other significant finding. IMPRESSION: NEGATIVE STUDY OF THE LEFT SHOULDER. NO RADIOGRAPHIC EVIDENCE OF ACUTE INJURY. TECHNICAL DOCUMENTATION: JOB ID: [id number] [employer]- All Rights Reserved Reading location - IP/workstation name: [email or web address]
== END ==
LOC: OD 14:15
PROVIDERS: ATTEND Nurse Practitioner Family
DX: S49.92XA Unspecified injury of left shoulder and upper arm, initial encounter (principal); X58.XXXA Exposure to other specified factors, initial encounter

== ENCOUNTER → 2019-12-22 | Outpatient (CLI) | payer MEDICAID ==
--- NOTE | 2019-12-22 15:13 | RADIOLOGY REPORT (SQ) ---
EXAM DESCRIPTION: NM GASTRIC EMPTYING STUDY COMPLETED DATE/TIME: 12/22/2019 1:09 pm REASON FOR STUDY: BILIOUS VOMITING (R11.14) R11.14 BILIOUS VOMITING COMPARISON: None. RADIONUCLIDE AND DOSE: 2.18 millicuries Tc-99m Sulfur Colloid. Egg salad sandwich The route of agent administration: Oral. TECHNIQUE: 1 minute serial static imaging performed at time of meal, 1 hour, 2 hours, 3 hours, and 4 hours as needed. Once stomach reaches 90% emptying, the test is complete. Image intensity values pl otted with respect to time with linear regression algorithm. LIMITATIONS: None. FINDINGS: Patient was observed for 4 hours. Immediate post meal serves as baseline. Gastric emptying at 60 minutes was 53%. Gastric emptying at 90 minutes was 67% Gastric emptying at 120 minutes was 78%. Gastric emptying at 240 minutes was 95%. Normal values: 60 minutes: 30-90% retained. If less than 30%, abnormally rapid emptying. If greater than 90%, delaye d gastric emptying. 120 minutes: <60% retained. If greater than 60%, delayed gastric emptying. 240 minutes: <10% retained. If greater than 10%, delayed gastric emptying. IMPRESSION: NORMAL GASTRIC EMPTYING. TECHNICAL DOCUMENTATION: JOB ID: [id number] [employer]- All Rights Reserved Reading location - IP/workstation name: [email or web address]
== END ==
LOC: RAD 11-26 08:08
PROVIDERS: ATTEND Internal Medicine Gastroenterology
DX: R11.14 Bilious vomiting (principal)
CPT/HCPCS: 78264; A9541

== ENCOUNTER 2020-01-01 09:08 | Day surgery (SDC) | payer MEDICAID ==
[~2020-01-01 09:08] MED LIST changes: -BUPIVACAINE HCL 0.25 % INJ/PF (2.5 MG/1 ML) 30 ML VIAL ONE; -CEFAZOLIN 1 GM/D5W RTU 1 GM/50 ML RTUPB IV ONE; -CEFOXITIN SODIUM 2 GM in DEXTROSE 5%-WATER 100 ML IV PRN; -LACTATED RINGERS 1000 ML IV PRN; -LIDOCAINE 0.5% INJ-PF (5 MG/ML) 50 ML SDV SUBCUT PRN; +ONABOTULINUMTOXINA INJ/PF 100 UNIT SDV IJ PRN
[2020-01-01] MEDS ORDERED: PROPOFOL INJ 200 MG/20 ML VIAL IV ONE (10:19)
[2020-01-01 11:30] VITALS: BP 132/88
--- NOTE | 2020-01-01 11:47 | Operative Report ---
Operative Report DATE OF SURGERY: 01/01/20 Operative Report: The risks benefits and alternatives of the procedure explained to the patient in detail and informed consent is obtained .A GIF Olympus video scope was inserted into the patient's mouth and hypopharynx, the esophagus is identified intubated and insufflated ,the scope was then advanced through the esophagus stomach and duodenum ,retroflexion maneuver is done, the esophagus stomach and first and second portions of the duodenum examined PREOPERATIVE DIAGNOSIS: Nausea vomiting. Gastroparesis. Coffee-ground emesis question GI bleed POSTOPERATIVE DIAGNOSIS: [place] classification grade B esophagitis. Hiatal hernia. Gastric erosions with areas of previous bleeding. Gastroparesis status post submucosal injection. Clean-based duodenal ulcers. Biopsies to rule out Helicobacter pylori OPERATION: EGD with biopsy SURGEON: JACOB BHAKTA ANESTHESIA: LMAC TISSUE REMOVED OR ALTERED: As noted above. COMPLICATIONS: None. ESTIMATED BLOOD LOSS: None. INTRAOPERATIVE FINDINGS: As noted above. PROCEDURE: Patient tolerated the procedure well. No immediate postprocedure complications are noted. Patient is discharged in good condition. Discharge date 01/01/2020. Discharge diet: Regular. Discharge activity: Regular. 2 to 3-week follow-up to discuss findings. Patient is instructed to call the office or proceed to the emergency room should there be any further problems or questions. We will start him on a PPI wait on biopsies to treat for Helicobacter pylori Botox injection hopefully will relieve patient's symptoms of nausea and vomiting
== END 2020-01-01 11:25 | disposition home or self-care (01) ==
LOC: END 09:08
PROVIDERS: ATTEND Internal Medicine Gastroenterology
DX: K20.9 Esophagitis, unspecified (principal); K44.9 Diaphragmatic hernia without obstruction or gangrene; K29.50 Unspecified chronic gastritis without bleeding; K31.84 Gastroparesis; K25.4 Chronic or unspecified gastric ulcer with hemorrhage; K26.9 Duodenal ulcer, unspecified as acute or chronic, without hemorrhage or perforation; J45.909 Unspecified asthma, uncomplicated; D64.9 Anemia, unspecified; F17.210 Nicotine dependence, cigarettes, uncomplicated; Z79.899 Other long term (current) drug therapy
CPT/HCPCS: 43236; 43239; 88342 ×2; 88305 ×2; J2704; J0585; 731

== ENCOUNTER 2020-01-01 21:50 | Emergency (ER) | payer MEDICAID ==
--- NOTE | 2020-01-01 22:49 | ER Document Report ---
ED Medical Screen (RME) - General Chief Complaint: Nausea Stated Complaint: CHEST PAINS,NAUSEA,SHORTNESS OF BREATH Time Seen by Provider: 01/01/20 22:40 Primary Care Provider: SOREN JEREZ FNP-C [Primary Care Provider] - Follow up as needed Notes: HPI: 29-year-old male with history of anemia, schizoaffective disorder, bipolar presenting for epigastric abdominal pain with some radiation into the lower chest with shortness of breath. Patient saw Dr. Adams today and had endoscopy done where they injected Botox into the stomach. Developed epigastric abdominal pain and the shortness of breath after the procedure. Called the molybdenum steamer operator who referred the patient to the emergency department today. I have greeted and performed a rapid initial assessment of this patient. A comprehensive ED assessment and evaluation of the patient, analysis of test results and completion of the medical decision making process will be conducted by additional ED providers PHYSICAL EXAMINATION: GENERAL: Well-appearing, well-nourished and in no acute distress. HEAD: Atraumatic, normocephalic. EYES: sclera anicteric, conjunctiva are normal. ENT: Moist mucous membranes. NECK: Normal range of motion LUNGS: Normal work of breathing, clear to auscultation HEART: 2+ radial pulses bilaterally, regular rate and rhythm ABD: limited by positioning for exam in triage. Mild tenderness to the epigastric region on palpation EXTREMITIES: no pitting or edema. No cyanosis. NEUROLOGICAL: No focal neurological deficits. Moves all extremities spontaneously and on command. PSYCH: Normal mood, normal affect. SKIN: Warm, Dry, normal turgor, no rashes or lesions noted. Discussed with Dr. zhong TRAVEL OUTSIDE OF THE [place] IN LAST 30 DAYS: No - Related Data Allergies/Adverse Reactions: No Known Allergies Allergy (Verified 07/23/19 18:51) Home Medications: depakote, zyprexa, vrylar, trintilix, trilipetal, busparoine and xanax Past Medical History - Past Medical History Cardiac Medical History: Denies: Hx Coronary Artery Disease, Hx Heart Attack, Hx Hypertension Pulmonary Medical History: Reports: Hx Asthma - A CHILD, Hx Bronchitis Denies: Hx COPD, Hx Pneumonia Neurological Medical History: Denies: Hx Cerebrovascular Accident, Hx Seizures Renal/ Medical History: Denies: Hx Peritoneal Dialysis Musculoskeltal Medical History: Denies Hx Arthritis, Reports Hx Musculoskeletal Trauma Psychiatric Medical History: Reports: Hx Bipolar Disorder, Hx Depression, Hx Schizoaffective Disorder, Hx Schizophrenia - effective - Immunizations Hx Diphtheria, Pertussis, Tetanus Vaccination: Yes Physical Exam - Vital signs Vitals: Temp Pulse Resp BP Pulse Ox 98.2 F 64 20 131/74 H 98 01/01/20 22:02 01/01/20 22:02 01/01/20 22:02 01/01/20 22:02 01/01/20 22:02 Course - Vital Signs Vital signs: Temp Pulse Resp BP Pulse Ox 98.2 F 64 20 131/74 H 98 01/01/20 22:02 01/01/20 22:02 01/01/20 22:02 01/01/20 22:02 01/01/20 22:02 Doctor's Discharge - Discharge Referrals: SOREN JEREZ FNP-C [Primary Care Provider] - Follow up as needed
[2020-01-01 23:15] LABS: ABSOLUTE BASOPHILS # (AUTO) 0.1 10^3/uL (0.0-0.2); ABSOLUTE EOSINOPHILS # (AUTO) 0.1 10^3/uL (0.0-0.6); ABSOLUTE LYMPHOCYTES (AUTO) 3.8 10^3/uL (0.5-4.7); ABSOLUTE MONOCYTES (AUTO) 1.3 10^3/uL (0.1-1.4); ABSOLUTE NEUT (AUTO) 7.3 10^3/uL (1.7-8.2); BASOPHILS % (AUTO) 0.9 % (0-2); EOSINOPHILS % (AUTO) 0.7 % (0-6); HEMATOCRIT 41.2 % (37.9-51.0); LYMPHOCYTES % (AUTO) 30.1 % (13-45); MEAN CORPUSCULAR HEMOGLOBIN 30.2 pg (27.0-33.4); MEAN CORPUSCULAR VOLUME 89 fl (80-97); MONOCYTES % (AUTO) 10.2 % (3-13); PLATELET COUNT 262 10^3/uL (150-450); RED BLOOD COUNT 4.64 10^6/uL (4.35-5.55); RED CELL DISTRIBUTION WIDTH 18.5 % (11.5-14.0); SEGMENTED NEUTROPHILS % (AUTO) 58.1 % (42-78); TOTAL CELLS COUNTED % (AUTO) 100 %; WHITE BLOOD COUNT 12.6 10^3/uL (4.0-10.5)
--- NOTE | 2020-01-01 23:16 | RADIOLOGY REPORT (SQ) ---
ABDOMINAL RADIOGRAPHS: 01/01/2020 10:15 PM CDT COMPARISON: None available TECHNIQUE: Upright and supine radiographs of the abdomen were obtained. HISTORY: 29-year old with abdominal pain. FINDINGS: The visualized bowel gas pattern is nonspecific and nonobstructive. No free air is seen beneath the hemidiaphragms. No abnormal intraabdominal calcifications are seen. There are no findings to suggest organomegaly. The visualized lung bases appear clear. Surgical clips are seen overlying the right upper quadrant of the abdomen, consistent with a previous cholecystectomy. IMPRESSION: The bowel gas pattern is nonobstructive and nonspecific.
[2020-01-01 23:24] LABS: INTERNATIONAL RATION (INR) 1.03; PROTHROMBIN TIME 13.5 SEC (11.4-15.4)
[2020-01-01 23:30] LABS: ALBUMIN 4.4 g/dL (3.5-5.0); ALKALINE PHOSPHATASE 71 U/L (38-126); ANION GAP 11 (5-19); ASPARTATE AMINO TRANSFERASE 25 U/L (17-59); BILIRUBIN,DIRECT 0.3 mg/dL (0.0-0.4); BILIRUBIN,TOTAL 0.4 mg/dL (0.2-1.3); BLOOD UREA NITROGEN 11 mg/dL (7-20); CALCIUM 9.6 mg/dL (8.4-10.2); CARBON DIOXIDE 21 mmol/L (22-30); CHLORIDE 109 mmol/L (98-107); GLUCOSE 88 mg/dL (75-110); POTASSIUM 4.5 mmol/L (3.6-5.0); TOTAL PROTEIN 7.7 g/dL (6.3-8.2)
--- NOTE | 2020-01-02 01:59 | RADIOLOGY REPORT (SQ) ---
PROCEDURE: CLINICAL HISTORY: 29 years Male sob after botox inj in stomach COMPARISON: None. TECHNIQUE: Contiguous axial images obtained through the chest abdomen and pelvis during the infusion of IV contrast. Reformatted images obtained. 3-D MIP reformatted images obtained. NASCET criteria utilized for the evaluation of any stenotic lesions. This exam was performed according to our department optimization program which includes automated exposure control, adjustment of the mA and/or kv according to patient size and/or use of iterative reconstruction technique. FINDINGS: Chest: The thoracic aorta is normal in caliber without dissection or rupture. Minimal fluid in the superior pericardial recess. No significant pericardial or pleural effusion. Scattered small mediastinal lymph nodes. No evidence of consolidation or infiltrate. Abdomen pelvis: Fatty infiltration of the liver. Spleen and pancreas are unremarkable. Adrenal glands appear within normal limits. No acute abnormality of the kidneys. No hydronephrosis. No evidence of bowel obstruction. Unremarkable appendix. The gel aorta is normal in caliber without evidence of dissection or rupture. SMA, celiac axis and renal arteries appear within normal limits. Gastric distention. No adjacent fluid collection. No evidence of pneumoperitoneum. IMPRESSION: No evidence of pulmonary embolus No evidence of thoracic or abdominal aortic dissection Mild gastric distention No evidence of acute process
--- NOTE | 2020-01-02 02:37 | ER Document Report ---
ED GI/ - General Chief Complaint: SOB, nausea, abd pain Stated Complaint: CHEST PAINS,NAUSEA,SHORTNESS OF BREATH Time Seen by Provider: 01/02/20 02:10 Primary Care Provider: JACOB BHAKTA MD [ACTIVE STAFF] - Follow up tomorrow Mode of Arrival: Ambulatory Information source: Patient Notes: Patient presents reporting that he had Botox injections to the stomach yesterday around 10:30 AM. Patient states that after going home and eating brownies cereal and other food he started to have abdominal pain nausea felt short of breath and weak. Patient states that since his arrival here he is feeling much better, the pain is improved and the nausea is resolved. TRAVEL OUTSIDE OF THE [place] IN LAST 30 DAYS: No - HPI Patient complains to provider of: Abdominal pain. No: Vomiting Onset: Yesterday Timing/Duration: Better Quality of pain: No pain Severity at maximum: Moderate Pain Level: Denies Location: Epigastric Associated symptoms: Nausea. denies: Chest pain, Diarrhea, Loss of appetite, Urinary hesitancy, Urinary frequency, Urinary retention, Urinary urgency, Vomiting Exacerbated by: Denies Relieved by: Denies Similar symptoms previously: Yes Recently seen / treated by doctor: Yes - Related Data Allergies/Adverse Reactions: No Known Allergies Allergy (Verified 07/23/19 18:51) Home Medications: depakote, zyprexa, vrylar, trintilix, trilipetal, busparoine and xanax Past Medical History - General Information source: Patient - Social History Smoking Status: Current Some Day Smoker Chew tobacco use (# tins/day): No Frequency of alcohol use: Occasional Drug Abuse: None Occupation: None Lives with: Family Family History: Reviewed & Not Pertinent, COPD, DM, Malignancy Patient has suicidal ideation: No Patient has homicidal ideation: No Pulmonary Medical History: Reports: Hx Asthma - A CHILD, Hx Bronchitis Denies: Hx COPD, Hx Pneumonia Neurological Medical History: Denies: Hx Cerebrovascular Accident, Hx Seizures Renal/ Medical History: Denies: Hx Peritoneal Dialysis GI Medical History: Reports: Other - Cyclical vomiting syndrome Musculoskeletal Medical History: Denies Hx Arthritis, Reports Hx Musculoskeletal Trauma Psychiatric Medical History: Reports: Hx Bipolar Disorder, Hx Depression, Hx Schizoaffective Disorder, Hx Schizophrenia - effective Past Surgical History: Reports: Hx Cholecystectomy - 2019 - Immunizations Hx Diphtheria, Pertussis, Tetanus Vaccination: Yes Review of Systems - Review of Systems Constitutional: Weakness. denies: Fever EENT: No symptoms reported Cardiovascular: No symptoms reported. denies: Chest pain Respiratory: Short of breath. denies: Cough Gastrointestinal: Abdominal pain, Nausea. denies: Diarrhea, Vomiting Genitourinary: No symptoms reported. denies: Dysuria Male Genitourinary: No symptoms reported Musculoskeletal: No symptoms reported. denies: Back pain Skin: No symptoms reported Hematologic/Lymphatic: No symptoms reported Neurological/Psychological: No symptoms reported Physical Exam - Vital signs Vitals: Temp Pulse Resp BP Pulse Ox 98.2 F 64 20 131/74 H 98 01/01/20 22:02 01/01/20 22:02 01/01/20 22:02 01/01/20 22:02 01/01/20 22:02 - General General appearance: Appears well, Alert In distress: None - HEENT Head: Normocephalic, Atraumatic Conjunctiva: Normal Mouth/Lips: Normal Mucous membranes: Normal Neck: Normal, Supple - Respiratory Respiratory status: No respiratory distress Chest status: Nontender Breath sounds: Normal. No: Rales, Rhonchi, Stridor, Wheezing Chest palpation: Normal - Cardiovascular Rhythm: Regular Heart sounds: S1 appreciated, S2 appreciated Murmur: No - Abdominal Inspection: Obese Distension: No distension Bowel sounds: Normal Tenderness: Nontender Organomegaly: No organomegaly - Back Back: Normal, Nontender. No: CVA tenderness - Extremities General upper extremity: Normal inspection, Normal ROM General lower extremity: Normal inspection, Normal ROM - Neurological Neuro grossly intact: Yes Cognition: Normal [place] Coma Scale Eye Opening: Spontaneous [place] Coma Scale Verbal: Oriented [place] Coma Scale Motor: Obeys Commands [place] Coma Scale Total: 15 - Psychological Associated symptoms: Normal affect, Normal mood - Skin Skin Temperature: Warm Skin Moisture: Dry Skin Color: Normal Course - Re-evaluation Re-evalutation: 01/02/20 02:38 Patient states that he is concerned that maybe he ate too much food that was too heavy so soon after having his procedure. Patient denies any nausea or vom iting. Patient states abdominal tenderness is improved, abdomen soft, no guarding. Respirations even unlabored. Patient states that he is ready to go home at this time. Patient presents with abdominal pain without signs of peritonitis or other life-threatening or serious etiology. Patient appears stable for discharge and has been instructed to return immediately if the symptoms worsen in any way. 01/02/20 02:38 - Vital Signs Vital signs: Temp Pulse Resp BP Pulse Ox 98.3 F 64 15 130/76 H 97 01/02/20 03:30 01/01/20 22:02 01/02/20 03:00 01/02/20 03:00 01/02/20 03:00 - Laboratory Result Diagrams: 01/01/20 23:03 01/01/20 23:03 Laboratory results interpreted by me: 01/01/20 01/01/20 23:03 23:03 WBC 12.6 H RDW 18.5 H Chloride 109 H Carbon Dioxide 21 L 01/02/20 02:38 Labs- Entire Visit 01/01/20 01/01/20 01/01/20 23:03 23:03 23:03 WBC 12.6 H RBC 4.64 Hgb 14.0 Hct 41.2 MCV 89 MCH 30.2 MCHC 34.0 RDW 18.5 H Plt Count 262 Lymph % (Auto) 30.1 [place] % (Auto) 10.2 Eos % (Auto) 0.7 Baso % (Auto) 0.9 Absolute Neuts (auto) 7.3 Absolute Lymphs (auto) 3.8 Absolute Monos (auto) 1.3 Absolute Eos (auto) 0.1 Absolute Basos (auto) 0.1 Seg Neutrophils % 58.1 PT 13.5 INR 1.03 Sodium 140.6 Potassium 4.5 Chloride 109 H Carbon Dioxide 21 L Anion Gap 11 BUN 11 Creatinine 0.90 Est GFR ( Amer) > 60 Est GFR (MDRD) Non-Af > 60 Glucose 88 Calcium 9.6 Total Bilirubin 0.4 Direct Bilirubin 0.3 Neonat Total Bilirubin Not Reportable Neonat Direct Bilirubin Not Reportable Neonat Indirect Bili Not Reportable AST 25 ALT 25 Alkaline Phosphatase 71 Total Protein 7.7 Albumin 4.4 - Diagnostic Test Radiology reviewed: Reports reviewed Discharge - Discharge Clinical Impression: Nausea Abdominal pain Qualifiers: Abdominal location: epigastric Qualified Code(s): R10.13 - Epigastric pain Condition: Stable Disposition: HOME, SELF-CARE Instructions: Abdominal Pain ([facility]) Additional Instructions: Return immediately for any new or worsening symptoms: Return of abdominal pain, vomiting, fever, new or concerning symptoms Followup with your primary care provider, call tomorrow to make a followup appointment Contact Dr. Bhakta's office tomorrow for follow-up Referrals: JACOB BHAKTA MD [ACTIVE STAFF] - Follow up tomorrow
[2020-01-02 03:37] VITALS: BP 130/76
== END 2020-01-02 03:37 | disposition home or self-care (01) ==
LOC: ER 21:50
DX: R10.13 Epigastric pain (principal); R11.0 Nausea; R06.02 Shortness of breath; R53.1 Weakness; F17.200 Nicotine dependence, unspecified, uncomplicated; Z98.890 Other specified postprocedural states
CPT/HCPCS: 36415; 71275; 74019; 74177; 80053; 85025; 85610; 99285

== ENCOUNTER 2020-04-10 18:04 | Emergency (ER) | payer MEDICAID ==
--- NOTE | 2020-04-10 20:06 | RADIOLOGY REPORT (SQ) ---
EXAM DESCRIPTION: HAND RIGHT 3 VIEWS IMAGES COMPLETED DATE/TIME: 04/10/2020 6:51 pm REASON FOR STUDY: right hand pain; punched door COMPARISON: None. EXAM PARAMETERS: NUMBER OF VIEWS: Three views. TECHNIQUE: AP, lateral and oblique radiographic images acquired of the right hand. LIMITATIONS: None. FINDINGS: MINERALIZATION: Normal. BONES: No acute fracture or dislocation. No worrisome bone lesions. JOINTS: No effusions. SOFT TISSUES: No soft tissue swelling. No foreign body. OTHER: No other significant finding. IMPRESSION: No radiographic abnormality of the right hand. TECHNICAL DOCUMENTATION: JOB ID: [id number] 2010 [employer]- All Rights Reserved Reading location - IP/workstation name: [email or web address]
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
[2020-04-10 21:06] VITALS: BP 116/70
== END 2020-04-10 21:09 | disposition home or self-care (01) ==
LOC: ER 18:04
DX: S60.221A Contusion of right hand, initial encounter (principal); W22.8XXA Striking against or struck by other objects, initial encounter; Y93.89 Activity, other specified; F17.200 Nicotine dependence, unspecified, uncomplicated; F12.10 Cannabis abuse, uncomplicated
CPT/HCPCS: 99283